=== PATIENT | male | born 1935 | race Caucasian/White ===

== ENCOUNTER 2023-06-12 08:00 | Day surgery (SDC) | payer OTHER ==
[2023-06-07 11:56] LABS: Absolute Lymphocytes (CBC) 1.3 K/uL (0.7-4.9); MCV 90.3 fL (80-100); Platelets 249 thou/uL (152-406); RBC Red Blood Cell Count 4.21 M/uL (4.33-5.43)
[2023-06-07 12:03] LABS: Protime INR 1.57
[2023-06-07 12:14] LABS: Potassium 4.7 mEq/L (3.5-5.1)
--- NOTE | 2023-06-07 12:39 | RAD REPORT ---
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 Lungs: No evidence of edema or pneumonia. Pleural: No significant pleural effusions or pneumothorax. Cardiac: Cardiomegaly Mediastinum: Within normal limits. Bones: No acute fractures. Sternotomy. Other: None IMPRESSION: No acute cardiopulmonary disease.
--- NOTE | 2023-06-07 13:32 | EKG ---
Test Date: 2023-06-07 Test Time: 12:42:41 Electrician Master: JIMMIE MEASUREMENT RESULTS: Intervals: Rate: 66 NE: QRSD: 94 QT: 392 QTc: 410 [place]: P: NE: QRS: 57 T: 217 INTERPRETIVE STATEMENTS: Atrial fibrillation Nonspecific T wave abnormality, probably digitalis effect Abnormal ECG Compared to ECG 07/28/2015 11:17:02 Sinus rhythm no longer present Atrial premature complex(es) no longer present T-wave abnormality still present Electronically Signed On 06-07-23 13:24:13 HOST/HOSTESS RESTAURANT by Grayson Ortiz
[2023-06-12] MEDS ORDERED: HEPA 1000U/500MLS 2,000 UNIT/1,000 ML BAG IV ONE (08:44)
[2023-06-12] MEDS ORDERED: LIDOCAINE 1% 20 ML MDV ONE (08:45)
[2023-06-12] MEDS ORDERED: MIDAZOLAM HCL 2 MG/2 ML INJ ONE (08:45)
[2023-06-12] MEDS ORDERED: FENTANYL CITR 100 MCG/2 ML ONE (08:45)
[2023-06-12] MEDS ORDERED: VERAPAMIL HCL 10 MG/4 ML VIAL IV ONE (08:45)
[2023-06-12] MEDS ORDERED: ATROPINE SULF 1 MG/10 ML SYR IV ONE (08:45)
[2023-06-12] MEDS ORDERED: ASPIRIN 325 MG TAB ONE (08:46)
[2023-06-12] MEDS ORDERED: TICAGRELOR 90 MG TABLET PO ONE (08:46)
[2023-06-12] MEDS ORDERED: HEPARIN 5000 UNIT/ML 1 ML VIAL ONE (08:46)
[2023-06-12] MEDS ORDERED: HEPARIN 10,000 UNIT/10 ML VIAL IV ONE (08:46)
[2023-06-12] MEDS ORDERED: CLOPIDOGREL 75 MG TABLET ONE (08:46)
[2023-06-12 08:56] VITALS: TEMP 97.6
[2023-06-12] MEDS ORDERED: NA CHLORIDE 0.9% 500 ML ONE (09:49)
[2023-06-12] MEDS ORDERED: NITROGLYCERIN/D5W 25 MG/250 ML BTL IV ONE (10:28)
[2023-06-12 13:27] VITALS: O2SAT 98
[2023-06-12 14:08] VITALS: BP 149/49
--- NOTE | 2023-06-12 21:15 | OP ---
Date of Procedure: 06/12/2023 Surgeon: KEDAR IGLESIAS Procedures Performed: 1.Coronary angiogram with bypass graft study. 2.Left heart catheterization. 3.Right heart catheterization. Indication: Aortic valve stenosis evaluation. Access: 1.Right femoral artery 6-Czech, closed with 6-Czech Angio-Seal. 2.Right IJ 7-Czech, closed with manual pressure. Complications: None. Bleeding: Less than 20 mL. Anesthesia: Total sedation time was 50 minutes. Description Of Procedure: After risks, benefits, and alternatives were explained, the patient agreed to procedure and signed informed consent. The patient was brought into cardiac catheterization [facility], prepped and draped in usual sterile fashion. Then, I accessed right femoral artery using asad ropuncture kit, ultrasound guidance, fluoroscopy, placed a 6-Czech [place] sheath and accessed righ t IJ using micropuncture kit under ultrasound guidance, and placed of 7-Czech pinnacle sheath and to ok a balloon-tipped 7-Czech Holland-Dinesh catheter through the IJ access into the right atrium and right ventricle, pulmonary artery and wedge, obtained waveform on pressure and then performed and obtained thermodilution and cardiac output and then removed the Holland catheter, then took a 6-Czech JL3.5 cat heter from the aortic root, engaged left main, took standard views, and then exchanged for a 6-Czech JR4 catheter, engaged the RCA, SVG to RCA, SVG to OM, and ROTH to LAD, took standard views and then using the J-wire and a JR4 catheter across the aortic valve and exchanged for [place] catheter, did simultaneous measurements between the LV and the aorta and obtained and then pullback did not record any gradient and then removed the catheter and the sheath and 6-Czech Angio-Seal was used for closure with good hemostasis. The IJ sheath was removed. Manual pressure was used for closure with good hemostasis. Findings: Coronary angiogram: 1.Left main is patent. 2.LAD; ANIMAL RIDES MANAGER ostially. 3.Left circumflex, large with proximal 30% stenosis, gives collaterals to the RCA. 4.RCA is totally occluded proximally. Graft study: 1.Patent SVG to RCA with proximal 30% to 40% stenosis. 2.Patent SVG to OM. 3.Patent ROTH to LAD. Right heart catheterization numbers: RA pressure is 10, RV pressure is 40/1, mean of 10, PA pressure 44/17, mean 26, pulmonary wedge pressure was 16, LVEDP was 13 mmHg, and the mean gradient across aor tic valve was 19 mmHg with a valve area of 1.1 cm2. Conclusion: 1.Severe [place] coronary artery disease with patent SV graft, SVG to OM, SVG to RCA, and ROTH to LAD . 2.Daiixghj-wy-xztiqp aortic valve stenosis with a valve area of 1.1 cm2. Plan: Medical management. Re-evaluate with echo in 6 months to a year. SR/MODL Voice ID: [id number] Report ID: [id number]
== END 2023-06-12 14:04 | disposition home or self-care (01) ==
LOC: CCL 08:00
PROVIDERS: ATTEND Internal Medicine
DX: I35.0 Nonrheumatic aortic (valve) stenosis (principal); I25.10 Atherosclerotic heart disease of native coronary artery without angina pectoris; I25.810 Atherosclerosis of coronary artery bypass graft(s) without angina pectoris; I25.82 Chronic total occlusion of coronary artery; I48.0 Paroxysmal atrial fibrillation; I73.9 Peripheral vascular disease, unspecified; I10 Essential (primary) hypertension; E78.2 Mixed hyperlipidemia; Z87.891 Personal history of nicotine dependence; Z79.01 Long term (current) use of anticoagulants; Z79.899 Other long term (current) drug therapy
CPT/HCPCS: 93005; 85025; 80048; 36415; 83721; 85610; 85730; 71046; 93461; 76937; C1893; C1760; Q9967; J2001; J2250; J3010; J7040; 99152; 99153; J0461; J1644

== ENCOUNTER 2023-07-19 07:00 | Day surgery (SDC) | payer OTHER ==
[2023-07-16 14:45] LABS: Absolute Lymphocytes (CBC) 1.1 K/uL (0.7-4.9); Absolute Monocytes 0.6 K/uL (0.1-1.3); Absolute Neutrophil 8.5 K/uL (1.8-8.0); Basophils % 0.3 % (0-1.3); Eosinophils % 0.4 % (0-4.4); Hematocrit 40.7 % (39.6-49.0); MCH 31.8 pg (27.0-35.0); MCHC 34.3 g/dL (32.0-36.0); MCV 92.6 fL (80-100); MPV 7.4 fL (7.6-11.3); Monocytes % 6.2 % (3.3-12.3); Neutrophils % 82.1 % (41.7-73.7); Platelets 265 thou/uL (152-406); RBC Red Blood Cell Count 4.39 M/uL (4.33-5.43); Red Cell Distribution Width 15.6 % (12.1-15.2)
[2023-07-16 14:54] LABS: PT Prothrombin Time 13.5 SECONDS (9.5-12.5); PTT, Activated Partial Thromb 37.9 SECONDS (24.3-36.9); Protime INR 1.23
[2023-07-16 14:57] LABS: Anion Gap 10.1 mEq/L (5.0-15.0); Potassium 5.1 mEq/L (3.5-5.1)
[2023-07-19] MEDS ORDERED: LIDOCAINE 1% 20 ML MDV ONE (07:05)
[2023-07-19] MEDS ORDERED: ATROPINE SULF 1 MG/10 ML SYR IV ONE (07:05)
[2023-07-19] MEDS ORDERED: HEPA 1000U/500MLS 2,000 UNIT/1,000 ML BAG IV ONE (07:05)
[2023-07-19] MEDS ORDERED: HEPARIN 10,000 UNIT/10 ML VIAL IV ONE (07:06)
[2023-07-19] MEDS ORDERED: FENTANYL CITR 100 MCG/2 ML ONE (07:06)
[2023-07-19] MEDS ORDERED: MIDAZOLAM HCL 2 MG/2 ML INJ ONE (07:07)
[2023-07-19] MEDS: NA CHLORIDE 0.9% 500 ML ONE (09:00)
[2023-07-19 10:32] VITALS: O2SAT 96
[2023-07-19 10:56] VITALS: BP 138/49
--- NOTE | 2023-07-20 17:40 | EKG ---
Test Date: 2023-07-16 Test Time: 14:20:30 Property Economist: TOO MEASUREMENT RESULTS: Intervals: Rate: 59 MA: QRSD: 90 QT: 420 QTc: 415 [place]: P: MA: QRS: 56 T: 144 INTERPRETIVE STATEMENTS: Atrial fibrillation with slow ventricular response T wave abnormality, consider inferolateral ischemia or digitalis effect Abnormal ECG Compared to ECG 06/07/2023 12:42:41 Possible ischemia now present T-wave abnormality still present Electronically Signed On 07-20-23 17:27:39 CDT by Grayson Ortiz
== END 2023-07-19 11:10 | disposition home or self-care (01) ==
LOC: CCL 07:00
PROVIDERS: ATTEND Internal Medicine Interventional Cardiology
DX: I70.223 Atherosclerosis of native arteries of extremities with rest pain, bilateral legs (principal); I25.10 Atherosclerotic heart disease of native coronary artery without angina pectoris; I35.0 Nonrheumatic aortic (valve) stenosis; I12.9 Hypertensive chronic kidney disease with stage 1 through stage 4 chronic kidney disease, or unspecified chronic kidney disease; N18.30 Chronic kidney disease, stage 3 unspecified; I48.0 Paroxysmal atrial fibrillation; E78.5 Hyperlipidemia, unspecified; Z87.891 Personal history of nicotine dependence; Z79.01 Long term (current) use of anticoagulants; Z79.899 Other long term (current) drug therapy
CPT/HCPCS: 93005; 85025; 80048; 36415; 85610; 85730; 36200; 36245; 36246; 76937; C1893; C1760; C1887; J2001; J2250; J3010; J7040; 75625; 75716; 99152; 99153; J0461

== ENCOUNTER 2024-01-11 15:57 | Emergency (ER) | payer OTHER ==
--- NOTE | 2024-01-11 17:22 | RAD REPORT ---
EXAM DESCRIPTION: RAD - Chest Pa And Lat (2 Views) - 01/11/2024 4:42 pm CLINICAL HISTORY: COUGH COMPARISON: Chest Pa And Lat (2 Views) dated 06/07/2023; Chest Pa And Lat (2 Views) dated 03/23/2022; CHEST SINGLE VIEW dated 07/26/2015; CHEST SINGLE VIEW dated 06/04/2011; Head Brain Wo Cont dated 01/11/20 24 TECHNIQUE: PA and lateral views of the chest were obtained. FINDINGS: The lungs are clear. Stable left pleural thickening versus trace effusion. Heart size is n ormal and central vasculature is within normal limits. No sizable pleural effusion or pneumothorax se en. No acute bony finding noted. Sequelae of median sternotomy again seen. IMPRESSION: No acute cardiopulmonary process.
--- NOTE | 2024-01-11 17:27 | RAD REPORT ---
EXAM DESCRIPTION: CT - Head Brain Wo Cont - 01/11/2024 4:48 pm CLINICAL HISTORY: headache;Headache COMPARISON: Head Brain Wo Cont dated 08/02/2021; HEAD BRAIN W O CONTRAST dated 07/26/2015 TECHNIQUE: Noncontrast head CT images were obtained without IV contrast. Multiplanar reformats were generated and reviewed. All CT scans are performed using dose optimization technique as appropriate and may include automated exposure control or mA/KV adjustment according to patient size. FINDINGS: No intracranial hemorrhage, mass, or edema. Midline structures are unremarkable. Normal ventricular caliber for age. Patrick-white matter differentiation is preserved, without evidence of acute infarct. Prominence of the extra-axial spaces along the right more than left frontoparietal convexities, stable. No other abnorm al extra-axial fluid collections. Stable pattern of periventricular and deep white matter hypodensities, nonspecific but suggestive of chronic small vessel ischemic changes. Mastoid air cells and visualized portions of the paranasal sinuses are clear. No acute bony findings. IMPRESSION: No evidence of an acute intracranial process.
[2024-01-11 17:41] LABS: Specific Gravity 1.007 (1.005-1.030); Sqamous Epithelial <5 /HPF (None Seen); Urine Bacteria None Seen /HPF (<20); Urine Bilirubin NEGATIVE (Negative); Urine Blood Trace (Negative); Urine Clarity Extremely Turbid (Clear); Urine Color Light-Yellow (Yellow); Urine Culture Reflex Order REFLEXED; Urine Glucose 3+ (Negative); Urine Ketones NEGATIVE (Negative); Urine Microscopic Reflex YN ORDER UMIC; Urine Nitrite NEGATIVE (Negative); Urine Protein TRACE (Negative); Urine RBC <5 /HPF (None Seen); Urine Urobilinogen Normal (Normal); Urine WBC >50 /HPF (<5)
[2024-01-11 17:53] LABS: Absolute Basophils 0.1 K/uL (0-0.5); Absolute Lymphocytes (CBC) 1.1 K/uL (0.7-4.9); Absolute Monocytes 1.3 K/uL (0.1-1.3); Absolute Neutrophil 7.8 K/uL (1.8-8.0); Basophils % 0.8 % (0-1.3); Eosinophils % 0.1 % (0-4.4); Hematocrit 44.6 % (39.6-49.0); Hemoglobin 15.1 g/dL (13.6-17.9); Lymphocytes % 10.6 % (15.3-44.8); MCH 31.5 pg (27.0-35.0); MCHC 33.9 g/dL (32.0-36.0); MCV 93.1 fL (80-100); MPV 7.5 fL (7.6-11.3); Monocytes % 12.8 % (3.3-12.3); Neutrophils % 75.7 % (41.7-73.7); Nucleated Red Blood Cells % 0.1 % (0-0); Platelets 213 thou/uL (152-406); RBC Red Blood Cell Count 4.79 M/uL (4.33-5.43); Red Cell Distribution Width 14.4 % (12.1-15.2)
[2024-01-11 17:56] LABS: Anion Gap 11.4 mEq/L (5.0-15.0)
[2024-01-11 17:57] LABS: Potassium 4.4 mEq/L (3.5-5.1)
[2024-01-11] MEDS ORDERED: ACETAMINOPHEN 500 MG TAB ONE (18:06)
[2024-01-11] MEDS ORDERED: CEFTRIAXONE 1000 MG/VIAL ONE (18:06)
[2024-01-11] MEDS ORDERED: NA CHLORIDE 0.9% 500 ML ONE (18:07)
--- NOTE | 2024-01-11 18:13 | ER ---
Nurse's Notes [facility] Name: Al Gaspar Age: 88 yrs Sex: Male : 1935 Arrival Date: 01/11/2024 Time: 15:57 Bed 12 Private MD: Diagnosis: UTI/ Urinary tract infection, site not specified;Myalgia Presentation: 01/10 16:13 Chief complaint: Patient states: Pt report headache \T\ blurred vision X 3 days. COVID + ld1 2 weeks ago, weakness. Pt reports burning while urinating, AIDEN flank pain X 3 days. Coronavirus screen: At this time, the client does not indicate any symptoms associated with coronavirus-19. Ebola Screen: No symptoms or risks identified at this time. Initial Sepsis Screen: Does the patient meet any 2 criteria? No. Patient's initial sepsis screen is negative. Does the patient have a suspected source of infection? No. Patient's initial sepsis screen is negative. Risk Assessment: Do you want to hurt yourself or someone else? Patient reports no desire to harm self or others. Onset of symptoms was January 11, 2024. 16:13 Method Of Arrival: Ambulatory ld1 16:13 Acuity: CRISTINE 3 ld1 Triage Assessment: 16:14 Headache History: Denies prior headaches. General: Appears in no apparent distress. ld1 comfortable, Behavior is calm, cooperative, appropriate for age. Pain: Complains of pain in low back area and pelvis Pain does not radiate. Pain currently is 7 out of 10 on a pain scale. Quality of pain is described as throbbing, Pain began suddenly, Is continuous, Also complains of no other associated symptoms. EENT: No signs and/or symptoms were reported regarding the EENT system. Neuro: Level of Consciousness is awake, alert, obeys commands, Oriented to person, place, time, situation, Appropriate for age. Cardiovascular: Capillary refill < 3 seconds Patient's skin is warm and dry. Respiratory: Airway is patent Respiratory effort is even, unlabored. GI: Abdomen is round non-distended. : No signs and/or symptoms were reported regarding the genitourinary system. Derm: No signs and/or symptoms reported regarding the dermatologic system. Musculoskeletal: No signs and/or symptoms reported regarding the musculoskeletal system. Historical: - Allergies: 16:14 No Known Allergies; ld1 - Home Meds: 16:16 Eliquis 5 mg oral tablet 1 tab once [Active]; furosemide 40 mg Oral tablet 1 tab once ld1 [Active]; - PMHx: 16:14 Atrial Fib; Bladder cancer; GERD; Hypertension; ld1 - Immunization history:: Adult Immunizations up to date. - Infectious Disease History:: Denies. - Social history:: Smoking status: Patient denies any tobacco usage or history of. Screenin:16 [facility] ED Fall Risk Assessment (Adult) History of falling in the last 3 months, ld1 including since admission No falls in past 3 months (0 pts) Confusion or Disorientation No (0 pts) Intoxicated or Sedated No (0 pts) Impaired Gait No (0 pts) Mobility Assist Device Used No (0 pt) Altered Elimination No (0 pt) Score/Fall Risk Level 0 - 2 = Low Risk Oriented to surroundings, Maintained a safe environment, Educated pt \T\ family on fall prevention, incl call for assistance when getting out of bed, Assessed \T\ reinforced patient's understanding of fall precautions, Provided non-skid footwear, Hourly rounding (assess needs \T\ fall precautionary measures) done, Used ambulatory aids as needed (educated on \T\ assisted with), Used gait belt as appropriate. Abuse screen: Denies threats or abuse. Denies injuries from another. Nutritional screening: No deficits noted. Tuberculosis screening: No symptoms or risk factors identified. Assessment: 16:16 Reassessment: See triage assessment. Pain: Denies pain. ld1 Vital Signs: 16:13 BP 138 / 70; Pulse 89; Resp 18; Temp 98.1(TE); Pulse Ox 97% on R/A; Weight 92.53 kg; ld1 Height 5 ft. 6 in. ; Pain 8/10; 18:52 BP 138 / 67; Pulse 64; Resp 18; Pulse Ox 100% on R/A; ar6 19:05 BP 126 / 64; Pulse 67; Resp 18; Pulse Ox 100% on R/A; ar6 16:13 Body Mass Index 32.93 (92.53 kg, 167.64 cm) ld1 16:13 Pain Scale: Adult ld1 ED Course: 16:00 Patient arrived in ED. mr 16:14 Triage completed. ld1 16:14 Arm band placed on right wrist. ld1 16:15 Александр Reyes DO is Attending Physician. ms3 16:16 Patient has correct armband on for positive identification. Placed in gown. Bed in low ld1 position. Call light in reach. Side rails up X2. pin drafter operator on. Pulse ox on. NIBP on. Door closed. Noise minimized. Warm blanket given. 16:44 Chest Pa And Lat (2 Views) XRAY In Process Unspecified. EDMS 16:50 CT Head Brain wo Cont In Process Unspecified. EDMS 17:26 Urinalysis w/ reflexes Sent. em1 17:27 BMP Sent. em1 17:27 CBC with Diff Sent. em1 17:27 Initial lab(s) drawn, by la, sent to lab. Inserted saline lock: 22 gauge in left em1 forearm, using aseptic technique. Blood collected. Flushed with 10 mL NS. 17:50 Attending Physician role handed off by Александр Reyes DO ms3 17:50 Geoffrey Glover MD is Attending Physician. ms3 18:04 Delmy Dinero, [facility] is Primary Nurse. ar6 18:12 Papo Thorne DO is Referral Physician. elmira 18:52 No apparent distress. Awaiting disposition. ar6 18:52 Provided Education on: medications. ar6 18:52 No provider procedures requiring assistance completed. IV discontinued, intact, ar6 bleeding controlled, No redness/swelling at site. Pressure dressing applied. Administered Medications: 18:15 Drug: Trimethoprim-Sulfamethoxazole PO (160 mg-800 mg (DS) 1 tablet PO once Route: PO; ar6 19:05 Follow up: Response: No adverse reaction ar6 18:20 Drug: Acetaminophen PO 1000 mg PO once Route: PO; ar6 18:53 Follow up: Response: No adverse reaction ar6 18:20 Drug: NS 0.9% IV 500 ml IV at bolus once Route: IV; Rate: bolus; Site: right forearm; ar6 18:20 Follow up: Response: No adverse reaction; IV Status: Completed infusion; IV Intake: ar6 500ml 18:30 Follow up: Response: No adverse reaction; IV Status: Completed infusion; IV Intake: ar6 500ml 18:20 Drug: Rocephin IV 1 grams IV at per protocol once; Given slow IV push per pharmacy ar6 instructions Route: IV; Rate: per protocol; Site: right forearm; 18:53 Follow up: Response: No adverse reaction; IV Status: Completed infusion ar6 Medication: 16:16 VIS not applicable for this client. ld1 Intake: 18:20 IV: 500ml; Total: 500ml. ar6 18:30 IV: 500ml; Total: 1000ml. ar6 Outcome: 18:13 Discharge ordered by . elmira 19:05 Discharged to home ambulatory, ar6 19:05 Condition: good 19:05 Discharge instructions given to patient, family, Instructed on discharge instructions, follow up and referral plans. medication usage, Demonstrated understanding of instructions, follow-up care, medications, Prescriptions given X 3, 19:06 Patient left the ED. ar6 Addendum: 01/15/2024 07:49 Addendum: Culture Results: Positive urine culture. No further action required. Bacteria i w sensitive to prescribed antibiotic. Signatures: Dispatcher [employer] EDMS Geoffrey Glover MD MD cha Rivera, Beverley, Reg Reg mr Aleida Zamora, RN Rodrigo Cyr em1 Александр Reyes DO DO ms3 Juana Reyes, [facility] RN ld1 Delmy Dinero RN RN ar6
--- NOTE | 2024-01-11 18:13 | EDPHYS ---
Physician Documentation [facility] Name: Al Gaspar Age: 88 yrs Sex: Male : 1935 Arrival Date: 01/11/2024 Time: 15:57 Bed 12 Private MD: ED Physician Geoffrey Glover HPI: 01/10 16:22 This 88 yrs old Male presents to ER via Ambulatory with complaints of Headache, Blurred ms3 Vision, Weakness, Urinary Problem. 16:22 88-year-old male with past medical history of atrial fibrillation, bladder cancer, ms3 GERD, hypertension presents to the emergency department for headache, backache, fatigue, dysuria. Of note patient did have COVID 2 weeks ago. Patient states his discomfort is currently 5/10 and improving. Patient states he has had symptoms for 3 weeks. Historical: - Allergies: 16:14 No Known Allergies; ld1 - Home Meds: 16:16 Eliquis 5 mg oral tablet 1 tab once [Active]; furosemide 40 mg Oral tablet 1 tab once ld1 [Active]; - PMHx: 16:14 Atrial Fib; Bladder cancer; GERD; Hypertension; ld1 - Immunization history:: Adult Immunizations up to date. - Infectious Disease History:: Denies. - Social history:: Smoking status: Patient denies any tobacco usage or history of. ROS: 16:22 Neck: Negative for injury, pain, and swelling, Cardiovascular: Negative for chest pain, ms3 and palpitations. 16:22 Abdomen/GI: Negative for abdominal pain, nausea, vomiting, diarrhea, and constipation, MS/Extremity: Negative for injury and deformity, Skin: Negative for injury, rash, and discoloration, 16:22 Constitutional: Positive for body aches, 16:22 Respiratory: Positive for cough, Exam: 16:22 Constitutional: This is a well developed, well nourished patient who is awake, alert, ms3 and in no acute distress. Head/Face: Normocephalic, atraumatic. Chest/axilla: Normal chest wall appearance and motion. Nontender with no deformity. Cardiovascular: Regular rate and rhythm with a normal S1 and S2. No gallops, murmurs, or rubs. Normal PMI, no JVD. No pulse deficits. Respiratory: Lungs have equal breath sounds bilaterally, clear to auscultation and percussion. No rales, rhonchi or wheezes noted. No increased work of breathing, no retractions or nasal flaring. Abdomen/GI: Soft, non-tender, with normal bowel sounds. No distension or tympany. No guarding or rebound. No evidence of tenderness throughout. Skin: Warm, dry with normal turgor. Normal color with no rashes, no lesions, and no evidence of cellulitis. MS/ Extremity: Pulses equal, no cyanosis. Neurovascular intact. Full, normal range of motion. Vital Signs: 16:13 BP 138 / 70; Pulse 89; Resp 18; Temp 98.1(TE); Pulse Ox 97% on R/A; Weight 92.53 kg; ld1 Height 5 ft. 6 in. ; Pain 8/10; 18:52 BP 138 / 67; Pulse 64; Resp 18; Pulse Ox 100% on R/A; ar6 19:05 BP 126 / 64; Pulse 67; Resp 18; Pulse Ox 100% on R/A; ar6 16:13 Body Mass Index 32.93 (92.53 kg, 167.64 cm) ld1 16:13 Pain Scale: Adult ld1 MDM: 16:20 Patient medically screened. ms3 16:22 Differential diagnosis: hyponatremia, intracerebral hemorrhage, migraine, Urinary tract ms3 infection versus pyelonephritis. 17:50 Transition of care: After a detail discussion of the patient's case, care is ms3 transferred to Geoffrey Glover MD. 01/10 16:21 Order name: CBC with Diff; Complete Time: 18:12 ms3 01/10 16:21 Order name: BMP; Complete Time: 18:12 ms3 01/10 16:21 Order name: Urinalysis w/ reflexes; Complete Time: 17:46 ms3 01/10 17:48 Order name: Urine Culture EDMS 01/10 16:21 Order name: CT Head Brain wo Cont; Complete Time: 17:35 ms3 01/10 16:21 Order name: Chest Pa And Lat (2 Views) XRAY; Complete Time: 17:35 ms3 01/10 16:21 Order name: IV Start; Complete Time: 17:26 ms3 Administered Medications: 18:15 Drug: Trimethoprim-Sulfamethoxazole PO (160 mg-800 mg (DS) 1 tablet PO once Route: PO; ar6 19:05 Follow up: Response: No adverse reaction ar6 18:20 Drug: Acetaminophen PO 1000 mg PO once Route: PO; ar6 18:53 Follow up: Response: No adverse reaction ar6 18:20 Drug: NS 0.9% IV 500 ml IV at bolus once Route: IV; Rate: bolus; Site: right forearm; ar6 18:20 Follow up: Response: No adverse reaction; IV Status: Completed infusion; IV Intake: ar6 500ml 18:30 Follow up: Response: No adverse reaction; IV Status: Completed infusion; IV Intake: ar6 500ml 18:20 Drug: Rocephin IV 1 grams IV at per protocol once; Given slow IV push per pharmacy ar6 instructions Route: IV; Rate: per protocol; Site: right forearm; 18:53 Follow up: Response: No adverse reaction; IV Status: Completed infusion ar6 Disposition Summary: 01/11/24 18:13 Discharge Ordered Notes: Location: Home [facility] Condition: Stable [facility] Diagnosis - UTI/ Urinary tract infection, site not specified [facility] - Myalgia [facility] Followup: ms3 - With: Papo Thorne DO - When: 2 - 3 days - Reason: Recheck today's complaints Discharge Instructions: - Discharge Summary Sheet ms3 - Dysuria ms3 - Urinary Tract Infection, Adult ms3 - Urinary Tract Infection, Adult, [id number] ms3 Forms: - Medication Reconciliation Form [facility] - Antibiotic Education [facility] - Prescription Opioid Use [facility] - Patient Portal Instructions [facility] - Leadership Thank You Letter [facility] Prescriptions: - Flomax 0.4 mg Oral capsule - take 1 capsule ORAL route once; 2 capsule; Refills: 0, Product Selection [facility] Permitted - Bactrim DS 800-160 mg Oral tablet - take 1 tablet ORAL route every 12 hours for 5 days; 6 tablet; Refills: 0, [facility] Product Selection Permitted - cefpodoxime 200 mg Oral tablet - take 1 tablet ORAL route every 12 hours with food; 20 tablet; Refills: 0, ms3 Product Selection Permitted Signatures: Dispatcher [employer] EDGeoffrey Valencia MD MD cha Sims, Marcus, DO DO ms3 Juana Reyes RN RN ld1 Delmy Dinero RN RN ar6 Corrections: (The following items were deleted from the chart) 16:22 16:22 Chest Pa And Lat (2 Views)+[email or web address] ordered. EDMS EDMS
[2024-01-11] MEDS ORDERED: SMZ./TMP. 800/160 MG TABLET ONE (18:49)
[2024-01-11 20:01] VITALS: TEMP 98.1
[2024-01-11 20:02] VITALS: O2SAT 100
[2024-01-11 20:04] VITALS: BP 126/64
== END 2024-01-11 19:06 | disposition home or self-care (01) ==
LOC: ER 15:57
DX: N39.0 Urinary tract infection, site not specified (principal); M79.10 Myalgia, unspecified site; I10 Essential (primary) hypertension; I48.91 Unspecified atrial fibrillation; Z79.01 Long term (current) use of anticoagulants; Z85.51 Personal history of malignant neoplasm of bladder
CPT/HCPCS: 96365; 87088; 85025; 81001; 87086; 80048; 36415; 87077; 87186; 70450; 71046; 99285; J7040; J0696

== ENCOUNTER 2024-06-29 20:59 | Emergency (ER) | payer OTHER ==
[2024-06-29 21:55] LABS: Absolute Eosinophils 0.3 K/uL (0-0.5); Absolute Monocytes 1.2 K/uL (0.1-1.3); Absolute Neutrophil 5.4 K/uL (1.8-8.0); Basophils % 0.5 % (0-1.3); Eosinophils % 2.8 % (0-4.4); Hematocrit 41.6 % (39.6-49.0); Hemoglobin 14.1 g/dL (13.6-17.9); Lymphocytes % 22.4 % (15.3-44.8); MCH 31.4 pg (27.0-35.0); MCHC 33.8 g/dL (32.0-36.0); MPV 7.1 fL (7.6-11.3); Monocytes % 13.3 % (3.3-12.3); Nucleated RBC Absolute Count 0.1 (0-0); Nucleated Red Blood Cells % 0.7 % (0-0); Platelets 218 thou/uL (152-406); RBC Red Blood Cell Count 4.48 M/uL (4.33-5.43); Red Cell Distribution Width 14.3 % (12.1-15.2)
[2024-06-29 22:01] LABS: PT Prothrombin Time 17.8 SECONDS (10.0-13.0); Protime INR 1.6
[2024-06-29 22:15] LABS: ALT/SGPT 28 U/L (16-61); AST/SGOT 15 U/L (15-37); Albumin 3.7 g/dL (3.4-5.0); Albumin/Globulin Ratio 1.2 (1.1-1.8); Alkaline Phosphatase 54 U/L (45-117); Anion Gap 7.9 mEq/L (5.0-15.0); BUN Blood Urea Nitrogen 34 mg/dL (7-18); Bicarbonate 29 mEq/L (21-32); Bilirubin Total 0.4 mg/dL (0.2-1.0); Globulin 3.2 g/dL (2.3-3.5); Glomerular Filtration Rate 48 ml/min (=/>90); Glucose Level 135 mg/dL (74-106); Magnesium 2.5 mg/dL (1.6-2.4); NT PRO-BNP 261 pg/mL (<450); Potassium 3.9 mEq/L (3.5-5.1); Protein, Total 6.9 g/dL (6.4-8.2); Sodium Level 143 mEq/L (136-145); Troponin High Sensitivity 20.4 pg/mL (<58.9)
[2024-06-29 22:17] LABS: Bilirubin Direct < 0.2 mg/dL (0-0.2); Bilirubin Indirect, Calculated 0.2 mg/dL (0.2-0.8)
--- NOTE | 2024-06-30 00:16 | ER ---
Nurse's Notes [facility] Name: Al Gaspar Age: 89 yrs Sex: Male : 1935 Arrival Date: 06/29/2024 Time: 20:59 Bed 19 Private MD: Lupillo Leon Diagnosis: Rectal bleeding, resolved Presentation: 06/29 21:07 Chief complaint: Patient states: passing blood through his rectum X 2 days , has been iw constipated , today there was more blood than before. Coronavirus screen: At this time, the client does not indicate any symptoms associated with coronavirus-19. Ebola Screen: No symptoms or risks identified at this time. Initial Sepsis Screen: Does the patient meet any 2 criteria? No. Patient's initial sepsis screen is negative. Does the patient have a suspected source of infection? No. Patient's initial sepsis screen is negative. Risk Assessment: Do you want to hurt yourself or someone else? Patient reports no desire to harm self or others. Onset of symptoms was June 27, 2024. 21:07 Method Of Arrival: Ambulatory iw 21:07 Acuity: CRISTINE 3 iw Historical: - Allergies: 21:08 No Known Allergies; iw - Home Meds: 21:09 Eliquis 5 mg Oral tablet 1 tab once [Active]; furosemide 40 mg Oral tablet 1 tab once iw [Active]; - PMHx: 21:08 Bladder cancer; Atrial Fib; GERD; Hypertension; iw - PSHx: 21:08 cardiac ablation; triple bypass; iw - Immunization history:: Adult Immunizations not up to date. - Infectious Disease History:: Denies. - Social history:: Smoking status: Patient/guardian denies using tobacco, the patient reports quitting approximately 15 years ago. Screenin:15 [facility] ED Fall Risk Assessment (Adult) History of falling in the last 3 months, rg5 including since admission No falls in past 3 months (0 pts) Confusion or Disorientation No (0 pts) Intoxicated or Sedated No (0 pts) Impaired Gait No (0 pts) Mobility Assist Device Used No (0 pt) Altered Elimination No (0 pt) Score/Fall Risk Level 0 - 2 = Low Risk Oriented to surroundings, Maintained a safe environment, Hourly rounding (assess needs \T\ fall precautionary measures) done. Abuse screen: Denies threats or abuse. Nutritional screening: No deficits noted. Tuberculosis screening: No symptoms or risk factors identified. Assessment: 21:15 General: Appears in no apparent distress. comfortable, Behavior is calm, cooperative, rg5 appropriate for age. 21:15 Pain: Complains of pain in abdomen Pain currently is 4 out of 10 on a pain scale. rg5 Quality of pain is described as aching. Neuro: Level of Consciousness is awake, alert, obeys commands, Oriented to person, place, time, situation. Cardiovascular: Denies chest pain, Patient's skin is warm and dry. Respiratory: Airway is patent Trachea midline Respiratory effort is even, unlabored, Respiratory pattern is regular, symmetrical. GI: Abdomen is round obese, Abd is soft and non tender Reports constipation, rectal bleeding. : No signs and/or symptoms were reported regarding the genitourinary system. EENT: No deficits noted. Derm: Skin is intact, Skin is dry, Skin is normal. Musculoskeletal: Circulation, motion, and sensation intact. Range of motion: intact in all extremities. 22:30 Reassessment: No changes from previously documented assessment. Patient and/or family rg5 updated on plan of care and expected duration. Pain level reassessed. Patient is alert, oriented x 3, equal unlabored respirations, skin warm/dry/pink. 23:32 Reassessment: No changes from previously documented assessment. Patient and/or family rg5 updated on plan of care and expected duration. Pain level reassessed. Patient is alert, oriented x 3, equal unlabored respirations, skin warm/dry/pink. 06/30 00:01 Reassessment: No changes from previously documented assessment. Patient and/or family rg5 updated on plan of care and expected duration. Pain level reassessed. Patient is alert, oriented x 3, equal unlabored respirations, skin warm/dry/pink. Vital Signs: 06/29 21:07 BP 170 / 75; Pulse 70; Resp 16; Temp 97.1; Pulse Ox 100% on R/A; Weight 89.36 kg; iw Height 5 ft. 6 in. ; Pain 5/10; 22:30 BP 153 / 60; Pulse 61; Resp 17; Pulse Ox 100% on R/A; Pain 0/10; rg5 23:31 BP 152 / 59; Pulse 60; Resp 17; Pulse Ox 99% on R/A; Pain 0/10; rg5 06/30 00:15 BP 142 / 55; Pulse 61; Resp 17; Pulse Ox 99% on R/A; Pain 0/10; rg5 06/29 21:07 Body Mass Index 31.80 (89.36 kg, 167.64 cm) iw 06/29 21:07 Pain Scale: Adult iw 22:30 Pain Scale: Adult rg5 23:31 Pain Scale: Adult rg5 06/30 00:15 Pain Scale: Adult rg5 ED Course: 06/29 21:04 Patient arrived in ED. gm2 21:04 Lupillo Leon MD is Private Physician. gm2 21:07 Zach Thorne MD is Attending Physician. sp3 21:08 Triage completed. iw 21:10 Justo Ayala, [facility] is Primary Nurse. rg5 21:10 Arm band placed on. iw 21:15 Patient has correct armband on for positive identification. Placed in gown. Bed in low rg5 position. Call light in reach. Side rails up X 1. Door closed. Noise minimized. Warm blanket given. 21:15 No provider procedures requiring assistance completed. Inserted saline lock: 20 gauge rg5 in right antecubital area, using aseptic technique. Blood collected. Flushed with 10 mL NS. Patient maintains SpO2 saturation greater than 95% on room air. 21:56 EKG done, by ED staff, reviewed by Zach Thorne MD. oe 22:40 CT Abd/Pelvis - IV Contrast Only In Process Unspecified. EDHI 06/30 00:15 Jorge Dickson MD is Referral Physician. sp3 00:16 Provided Education on: post er care. rg5 00:16 IV discontinued, bleeding controlled, No redness/swelling at site. Pressure dressing rg5 applied. Administered Medications: No medications were administered Medication: 06/29 21:15 VIS not applicable for this client. rg5 Outcome: 06/30 00:15 Discharge ordered by . sp3 00:25 Discharged to home ambulatory, rg5 00:25 Condition: stable 00:25 Condition: stable 00:25 Instructed on discharge instructions, follow up and referral plans. Demonstrated understanding of instructions, follow-up care, 00:25 Patient left the ED. rg5 Signatures: Dispatcher [employer] EDHI Aleida Zamora, [facility] RN iw Chou, Zach Barrera MD MD sp3 Rehana Aranda gm2 Justo Ayala, RN RN rg5
--- NOTE | 2024-06-30 00:16 | EDPHYS ---
Physician Documentation [facility] Name: Al Gaspar Age: 89 yrs Sex: Male : 1935 Arrival Date: 06/29/2024 Time: 20:59 Bed 19 Private MD: Lupillo Leon ED Physician Zach Thorne HPI: 06/29 21:47 This 89 yrs old Male presents to ER via Ambulatory with complaints of Rectal Bleeding. sp3 21:47 89-year-old male with a history of bladder cancer, atrial fibrillation currently on sp3 Eliquis, GERD, hypertension presents to the ED with chief complaint rectal bleeding with and without stool. No melena reported. No vomiting. Patient denies headache, neck pain, chest pain, shortness of breath, back pain, abdominal pain, bleeding anywhere else, syncope, near syncope, or any other signs or symptoms on ROS at this time. Patient has a total of 2 episodes.. Historical: - Allergies: 21:08 No Known Allergies; iw - Home Meds: 21:09 Eliquis 5 mg Oral tablet 1 tab once [Active]; furosemide 40 mg Oral tablet 1 tab once iw [Active]; - PMHx: 21:08 Bladder cancer; Atrial Fib; GERD; Hypertension; iw - PSHx: 21:08 cardiac ablation; triple bypass; iw - Immunization history:: Adult Immunizations not up to date. - Infectious Disease History:: Denies. - Social history:: Smoking status: Patient/guardian denies using tobacco, the patient reports quitting approximately 15 years ago. ROS: 21:48 Constitutional: Negative for fever, chills, and weight loss, Eyes: Negative for injury, sp3 pain, redness, and discharge, ENT: Negative for injury, pain, and discharge, Neck: Negative for injury, pain, and swelling, Cardiovascular: Negative for chest pain, palpitations, and edema, Respiratory: Negative for shortness of breath, cough, wheezing, and pleuritic chest pain, Back: Negative for injury and pain, MS/Extremity: Negative for injury and deformity, Skin: Negative for injury, rash, and discoloration, Neuro: Negative for headache, weakness, numbness, tingling, and seizure, Psych: Negative for depression, anxiety, suicide ideation, homicidal ideation, and hallucinations, Allergy/Immunology: Negative for hives, rash, and allergies, Endocrine: Negative for neck swelling, polydipsia, polyuria, polyphagia, and marked weight changes, 21:48 All other systems are negative, Exam: 21:49 Constitutional: This is a well developed, well nourished patient who is awake, alert, sp3 and in no acute distress. Head/Face: Normocephalic, atraumatic. Eyes: Pupils equal round and reactive to light, extra-ocular motions intact. Lids and lashes normal. Conjunctiva and sclera are non-icteric and not injected. Cornea within normal limits. Periorbital areas with no swelling, redness, or edema. ENT: Nares patent. No nasal discharge, no septal abnormalities noted. External auditory canals are clear. Oropharynx with no redness, swelling, or masses, exudates, or evidence of obstruction, uvula midline. Mucous membranes moist. Neck: Trachea midline, no thyromegaly or masses palpated, and no cervical lymphadenopathy. Supple, full range of motion without nuchal rigidity, or vertebral point tenderness. No Meningismus. Chest/axilla: Normal chest wall appearance and motion. Nontender with no deformity. No lesions are appreciated. Cardiovascular: Regular rate and rhythm with a normal S1 and S2. No gallops, murmurs, or rubs. Normal PMI, no JVD. No pulse deficits. Respiratory: Lungs have equal breath sounds bilaterally, clear to auscultation and percussion. No rales, rhonchi or wheezes noted. No increased work of breathing, no retractions or nasal flaring. Abdomen/GI: Soft, non-tender, with normal bowel sounds. No distension or tympany. No guarding or rebound. No evidence of tenderness throughout. Back: No spinal tenderness. No costovertebral tenderness. Full range of motion. Skin: Warm, dry with normal turgor. Normal color with no rashes, no lesions, and no evidence of cellulitis. MS/ Extremity: Pulses equal, no cyanosis. Neurovascular intact. Full, normal range of motion. Neuro: Awake and alert, GCS 15, oriented to person, place, time, and situation. Cranial nerves II-XII grossly intact. Motor strength 5/5 in all extremities. Sensory grossly intact. Cerebellar exam normal. Normal gait. Psych: Awake, alert, with orientation to person, place and time. Behavior, mood, and affect are within normal limits. 21:49 : No external or internal hemorrhoids appreciated. No active bleeding., 21:51 ECG was reviewed by the Attending Physician. EKG demonstrates normal sinus rhythm at 64 sp3 bpm with normal intervals, normal QRS, motion artifact, normal axis, nonspecific diffuse ST/T changes without evidence of acute ischemia. Vital Signs: 21:07 BP 170 / 75; Pulse 70; Resp 16; Temp 97.1; Pulse Ox 100% on R/A; Weight 89.36 kg; iw Height 5 ft. 6 in. ; Pain 5/10; 22:30 BP 153 / 60; Pulse 61; Resp 17; Pulse Ox 100% on R/A; Pain 0/10; rg5 23:31 BP 152 / 59; Pulse 60; Resp 17; Pulse Ox 99% on R/A; Pain 0/10; rg5 06/30 00:15 BP 142 / 55; Pulse 61; Resp 17; Pulse Ox 99% on R/A; Pain 0/10; rg5 06/29 21:07 Body Mass Index 31.80 (89.36 kg, 167.64 cm) iw 06/29 21:07 Pain Scale: Adult iw 22:30 Pain Scale: Adult rg5 23:31 Pain Scale: Adult rg5 06/30 00:15 Pain Scale: Adult rg5 MDM: 06/29 21:17 Medical Screening Exam initiated sp3 21:49 Data reviewed: vital signs, nurses notes, lab test result(s), EKG, radiologic studies. sp3 ED course: 89-year-old male with PMH above, on Eliquis now presents with rectal bleeding episodes x 2. No active bleeding noted. Vital signs are normal. Differential diagnosis includes Eliquis side effect, bleeding polyp, other GI bleed, hemorrhoidal bleed, among others. I am not highly suspicious of sepsis, shock, hypovolemia, critical anemia, or any other signs or symptoms on ROS at this time. Workup will include general labs, CT scan of the abdomen pelvis with IV contrast and general supportive care. Disposition pending workup and patient course. If workup negative, consider discharge with follow-up with Dr. Montez who is his GI doctor.. 06/30 00:15 ED course: Full workup negative. I will hold Eliquis for 2 days and follow-up with Dr. rajani Leon and Dr. Goodson. 06/29 21:17 Order name: Basic Metabolic Panel; Complete Time: 22:19 sp3 06/29 21:17 Order name: CBC with Diff; Complete Time: 22:19 sp3 06/29 21:17 Order name: LFT's; Complete Time: 22:19 sp3 06/29 21:17 Order name: Magnesium; Complete Time: 22:19 sp3 06/29 21:17 Order name: NT PRO-BNP; Complete Time: 22:19 sp3 06/29 21:17 Order name: PT-INR; Complete Time: 22:19 sp3 06/29 21:17 Order name: Troponin HS; Complete Time: 22:19 sp3 06/29 21:17 Order name: CT Abd/Pelvis - IV Contrast Only sp3 06/29 21:17 Order name: EKG; Complete Time: 21:18 sp3 06/29 21:17 Order name: Cardiac monitoring; Complete Time: 21:36 sp3 06/29 21:17 Order name: EKG - Nurse/Tech; Complete Time: 22:21 sp3 06/29 21:17 Order name: IV Saline Lock; Complete Time: 21:36 sp3 06/29 21:17 Order name: Labs collected and sent; Complete Time: 21:36 sp3 06/29 21:17 Order name: O2 Per Protocol; Complete Time: 21:36 sp3 06/29 21:17 Order name: O2 Sat Monitoring; Complete Time: 21:36 sp3 Administered Medications: No medications were administered Disposition Summary: 06/30/24 00:15 Discharge Ordered Notes: Location: Home sp3 Condition: Stable sp3 Diagnosis - Rectal bleeding, resolved sp3 Followup: sp3 - With: Jorge Dickson MD - When: Upon discharge from the Emergency Department - Reason: Continuance of care Discharge Instructions: - Discharge Summary Sheet sp3 - Rectal Bleeding sp3 Forms: - Medication Reconciliation Form sp3 - Antibiotic Education sp3 - Prescription Opioid Use sp3 - Patient Portal Instructions sp3 - Leadership Thank You Letter sp3 Signatures: Dispatcher [employer] Aleida Rodrigez RN RN iw Patel, Setul, MD MD sp3
[2024-06-30 00:30] VITALS: TEMP 97.1
[2024-06-30 00:34] VITALS: O2SAT 99
[2024-06-30 00:36] VITALS: BP 142/55
--- NOTE | 2024-06-30 02:21 | RAD REPORT ---
PROCEDURE: CT Abdomen and Pelvis With Intravenous Contrast CLINICAL INDICATION: The patient is 89 years old and is Male; Rectal bleeding. TECHNIQUE: Axial computed tomography images of the abdomen and pelvis with intravenous contrast. Sagittal and coronal reformatted images were created and reviewed. This CT exam was performed using one or more of the following dose reduction techniques: automated exposure control, adjustment of the mA a nd/or kV according to patient size, and/or use of iterative reconstruction technique. COMPARISON: CT Abdomen pelvis 08/15/2022. FINDINGS: LUNG BASES: Unremarkable No mass. No consolidation. MEDIASTINUM: Small hiatal hernia. ABDOMEN: LIVER: Unremarkable No mass. GALLBLADDER AND BILE DUCTS: Gallstone within a contracted bladder. No ductal dilation. PANCREAS: Unremarkable No mass. No ductal dilation. SPLEEN: Unremarkable No splenomegaly. ADRENALS: Unremarkable No mass. KIDNEYS AND URETERS: Simple renal cysts redemonstrated bilaterally with one demonstrating thin michael pheral calcifications, unchanged. No follow-up of these simple cysts is necessary. No hydronephrosis. STOMACH AND BOWEL: Right lower quadrant small bowel anastomosis redemonstrated immediately proximal to the ileocecal junction. No evidence of small or large bowel obstruction. PELVIS: APPENDIX: No findings to suggest acute appendicitis. BLADDER: Extensive intrapelvic surgical changes related to urinary bladder resection and neobladder reconstruction. REPRODUCTIVE: Radical prostatectomy. ABDOMEN and PELVIS: INTRAPERITONEAL SPACE: Unremarkable No free air. No significant fluid collection. BONES/JOINTS: Multilevel spondylosis. No acute fracture. No dislocation. SOFT TISSUES: Redemonstrated small superior midline ventral wall hernia containing omental fat and an adjacent mesenteric vessel, unchanged. Small fat-containing left inguinal hernia. Hepatic cysts too small small fat-containing umbilical hernia. Midline infraumbilical abdominal wall incision site redemonstrated. VASCULATURE: Severe calcified atherosclerosis of the abdominal aorta without aneurysmal dilatation. LYMPH NODES: Unremarkable No enlarged lymph nodes. IMPRESSION: 1. No acute abnormality of the abdomen or pelvis. 2. Cholelithiasis. 3. Extensive intrapelvic surgical changes related to radical prostatectomy, urinary bladder resecti on and neobladder reconstruction. 4. Additional nonacute findings as above. Of note, noncontrasted and single phase contrasted CT studies of the abdomen and pelvis are insensiti ve for the evaluation of active GI bleed. If there is clinical suspicion for GI bleed, a GI bleed scintigraphic study or multiphase CT of the abdomen and pelvis with noncontrasted, arterial-phase, an d delayed venous-phase contrast images is recommended to reliably evaluate for presence and source of active GI bleed. Electronically signed by: Devon Bolton MD 06/29/2024 11:49 PM [facility] Due to temporary technical issues with the PACS/[employer] reporting system, reports are being mary d by the in-house radiologist without review as a courtesy to ensure prompt reporting the interpreting radiologist is fully responsible for the content of the report. Transcribed Date/Time: 06/30/2024 6:51 AM
--- NOTE | 2024-06-30 11:56 | EKG ---
Test Date: 2024-06-29 Test Time: 21:44:30 Energy Control Officer: UBALDO MEASUREMENT RESULTS: Intervals: Rate: 64 CO: 184 QRSD: 96 QT: 436 QTc: 449 [place]: P: 16 CO: 184 QRS: 64 T: 144 INTERPRETIVE STATEMENTS: Undetermined rhythm Marked ST abnormality, possible lateral subendocardial injury Abnormal ECG Compared to ECG 07/16/2023 14:20:30 ST (T wave) deviation now present Atrial fibrillation no longer present T-wave abnormality no longer present Possible ischemia no longer present Electronically Signed On 06-30-24 11:56:18 OCCUPATIONAL HEALTH AND SAFETY OFFICER by Jose Enrique Hill
== END 2024-06-30 00:25 | disposition home or self-care (01) ==
LOC: ER 20:59
DX: K62.5 Hemorrhage of anus and rectum (principal); Z85.51 Personal history of malignant neoplasm of bladder; I48.91 Unspecified atrial fibrillation; Z79.01 Long term (current) use of anticoagulants; Z95.1 Presence of aortocoronary bypass graft
CPT/HCPCS: 93005; 85025; 80048; 36415; 83735; 85610; 80076; 84484; 83880; 74177; 99284; Q9967

== ENCOUNTER 2024-12-20 13:10 | Observation (INO) | payer OTHER ==
[2024-12-20 14:19] LABS: Absolute Lymphocytes (CBC) 1.2 K/uL (0.7-4.9); Hematocrit 38.3 % (39.6-49.0); Hemoglobin 13.1 g/dL (13.6-17.9); MCH 31.2 pg (27.0-35.0); MCHC 34.1 g/dL (32.0-36.0); MCV 91.3 fL (80-100); MPV 6.8 fL (7.6-11.3); Nucleated RBC Absolute Count 0.0 (0-0); Nucleated Red Blood Cells % 0.0 % (0-0); RBC Red Blood Cell Count 4.20 M/uL (4.33-5.43); White Blood Count 6.20 thou/uL (4.3-10.9)
[2024-12-20 14:29] LABS: PT Prothrombin Time 18.8 SECONDS (10-13.0); Protime INR 1.69
[2024-12-20 14:49] LABS: ALT/SGPT 33 U/L (16-61); AST/SGOT 21 U/L (15-37); Albumin 3.4 g/dL (3.4-5.0); Albumin/Globulin Ratio 1.1 (1.1-1.8); Alkaline Phosphatase 44 U/L (45-117); Anion Gap 7.8 mEq/L (5.0-15.0); BUN Blood Urea Nitrogen 25 mg/dL (7-18); Globulin 3.0 g/dL (2.3-3.5); Glucose Level 103 mg/dL (74-106); Magnesium 2.3 mg/dL (1.6-2.4); NT PRO-BNP 555 pg/mL (<450); Potassium 3.8 mEq/L (3.5-5.1); Troponin High Sensitivity 27.2 pg/mL (<58.9)
[2024-12-20 14:54] LABS: Bilirubin Indirect, Calculated 0.3 mg/dL (0.2-0.8)
--- NOTE | 2024-12-20 15:00 | EDPHYS ---
Physician Documentation [facility] Name: Al Gaspar Age: 89 yrs Sex: Male : 1935 Arrival Date: 12/20/2024 Time: 13:10 Bed 4 Private MD: ED Physician Zach Thorne HPI: 12/20 13:55 This 89 yrs old Male presents to ER via Ambulatory with complaints of General Weakness, sp3 Dizziness. 13:55 89-year-old male with history of atrial fibrillation on Eliquis, hypertension, GERD, sp3 history of bladder cancer who sees Dr. Leon now presents to the ED with chief complaint generalized weakness, feeling of impending doom and mild shortness of breath. Patient also states he felt dizzy and felt like he may "pass out". Patient has a history of CABG as well. ROS otherwise negative.. Historical: - Allergies: 13:24 No Known Allergies; ar8 - Home Meds: 13:24 Eliquis 5 mg Oral tablet 1 tab once [Active]; furosemide 40 mg Oral tablet 1 tab once ar8 [Active]; - PMHx: 13:24 Atrial Fib; Hypertension; GERD; Bladder cancer; ar8 - PSHx: 13:24 Cardiac Ablation; triple bypass; ar8 - Immunization history:: Adult Immunizations up to date, Adult Immunizations. - Infectious Disease History:: Denies. - Social history:: Smoking status: Patient/guardian denies using tobacco. ROS: 13:56 Constitutional: Negative for fever, chills, and weight loss, Eyes: Negative for injury, sp3 pain, redness, and discharge, ENT: Negative for injury, pain, and discharge, Neck: Negative for injury, pain, and swelling, Respiratory: Negative for shortness of breath, cough, wheezing, and pleuritic chest pain, Abdomen/GI: Negative for abdominal pain, nausea, vomiting, diarrhea, and constipation, Back: Negative for injury and pain, MS/Extremity: Negative for injury and deformity, Skin: Negative for injury, rash, and discoloration, Neuro: Negative for headache, weakness, numbness, tingling, and seizure, Psych: Negative for depression, anxiety, suicide ideation, homicidal ideation, and hallucinations, Allergy/Immunology: Negative for hives, rash, and allergies, Endocrine: Negative for neck swelling, polydipsia, polyuria, polyphagia, and marked weight changes, 13:56 All other systems are negative, Exam: 13:56 Constitutional: This is a well developed, well nourished patient who is awake, alert, sp3 and in no acute distress. Head/Face: Normocephalic, atraumatic. Eyes: Pupils equal round and reactive to light, extra-ocular motions intact. Lids and lashes normal. Conjunctiva and sclera are non-icteric and not injected. Cornea within normal limits. Periorbital areas with no swelling, redness, or edema. ENT: Nares patent. No nasal discharge, no septal abnormalities noted. External auditory canals are clear. Oropharynx with no redness, swelling, or masses, exudates, or evidence of obstruction, uvula midline. Mucous membranes moist. Neck: Trachea midline, no thyromegaly or masses palpated, and no cervical lymphadenopathy. Supple, full range of motion without nuchal rigidity, or vertebral point tenderness. No Meningismus. Chest/axilla: Normal chest wall appearance and motion. Nontender with no deformity. No lesions are appreciated. Cardiovascular: Regular rate and rhythm with a normal S1 and S2. No gallops, murmurs, or rubs. Normal PMI, no JVD. No pulse deficits. Respiratory: Lungs have equal breath sounds bilaterally, clear to auscultation and percussion. No rales, rhonchi or wheezes noted. No increased work of breathing, no retractions or nasal flaring. Abdomen/GI: Soft, non-tender, with normal bowel sounds. No distension or tympany. No guarding or rebound. No evidence of tenderness throughout. Back: No spinal tenderness. No costovertebral tenderness. Full range of motion. Skin: Warm, dry with normal turgor. Normal color with no rashes, no lesions, and no evidence of cellulitis. MS/ Extremity: Pulses equal, no cyanosis. Neurovascular intact. Full, normal range of motion. Neuro: Awake and alert, GCS 15, oriented to person, place, time, and situation. Cranial nerves II-XII grossly intact. Motor strength 5/5 in all extremities. Sensory grossly intact. Cerebellar exam normal. Normal gait. Psych: Awake, alert, with orientation to person, place and time. Behavior, mood, and affect are within normal limits. Vital Signs: 13:21 Pulse 80; Resp 18; Temp 97.8; Pulse Ox 99% ; Weight 91.63 kg; Height 5 ft. 6 in. ; Pain ar8 5/10; 13:31 BP 133 / 67; ar8 13:21 Body Mass Index 32.60 (91.63 kg, 167.64 cm) ar8 13:21 Pain Scale: Adult ar8 MDM: 13:35 Medical Screening Exam initiated sp3 13:57 Data reviewed: vital signs, nurses notes, old medical records, lab test result(s), EKG, sp3 radiologic studies. ED course: 89-year-old male with PMH above now with vague symptoms including generalized weakness, near syncope and feeling of impending doom. Differential diagnosis is broad and includes acute coronary syndrome, other viral illness, electro abnormality, dehydration, depression, among others. Workup will be broad and include chest x-ray, abdominal x-ray for constipation, EKG, general labs and general supportive care. Consider observation 23-hour for serial cardiac markers given CABG history and extensive cardiac history including atrial fibrillation.. 12/20 13:46 Order name: Basic Metabolic Panel; Complete Time: 14:54 sp3 12/20 13:46 Order name: CBC with Diff; Complete Time: 14:53 sp3 12/20 13:46 Order name: LFT's; Complete Time: 14:54 sp3 12/20 13:46 Order name: Magnesium; Complete Time: 14:54 sp3 12/20 13:46 Order name: NT PRO-BNP; Complete Time: 14:54 sp3 12/20 13:46 Order name: PT-INR; Complete Time: 14:53 sp3 12/20 13:46 Order name: Troponin HS; Complete Time: 14:54 sp3 12/20 16:05 Order name: Basic Metabolic Panel EDMS 12/20 16:05 Order name: Basic Metabolic Panel EDMS 12/20 16:05 Order name: CBC with Automated Diff EDMS 12/20 16:05 Order name: CBC with Automated Diff EDMS 12/20 16:05 Order name: Lipid Profile EDMS 12/20 16:05 Order name: Lipid Profile EDMS 12/20 16:05 Order name: Troponin High Sensitivity EDMS 12/20 16:05 Order name: Troponin High Sensitivity EDMS 12/20 16:05 Order name: Troponin High Sensitivity EDMS 12/20 16:05 Order name: Troponin High Sensitivity EDMS 12/20 13:46 Order name: XRAY Chest (1 view); Complete Time: 15:23 sp3 12/20 13:46 Order name: Abdomen 1 View XRAY; Complete Time: 15:23 sp3 12/20 16:05 Order name: Echo with Doppler EDMS 12/20 13:46 Order name: EKG; Complete Time: 13:47 sp3 12/20 13:46 Order name: Cardiac monitoring; Complete Time: 14:04 sp3 12/20 13:46 Order name: EKG - Nurse/Tech; Complete Time: 14:04 sp3 12/20 13:46 Order name: IV Saline Lock; Complete Time: 14:08 sp3 12/20 13:46 Order name: Labs collected and sent; Complete Time: 14:08 sp3 12/20 13:46 Order name: O2 Per Protocol; Complete Time: 14:08 sp3 12/20 13:46 Order name: O2 Sat Monitoring; Complete Time: 14:08 sp3 Administered Medications: No medications were administered Disposition Summary: 12/20/24 15:00 Hospitalization Ordered Notes: Hospitalization Status: Observation sp3 Provider: Rehan Menchaca sp3 Location: Telemetry/MedSurg (observation) sp3 Condition: Stable sp3 Problem: an acute exacerbation sp3 Symptoms: have worsened sp3 Bed/Room Type: Standard sp3 Room Assignment: [facility](12/20/24 16:51) eb Diagnosis - Chest pain sp3 Forms: - Medication Reconciliation Form sp3 - SBAR form sp3 - Leadership Thank You Letter sp3 Signatures: Dispatcher [employer] Idalia Sandoval RN RN ss Cora Osorio Setul, MD MD sp3 Dereje Scott RN RN ar8 Corrections: (The following items were deleted from the chart) 16:17 15:00 sp3 16:51 16:[address] [place] [address]
--- NOTE | 2024-12-20 15:00 | ER ---
Nurse's Notes [facility] Name: Al Gaspar Age: 89 yrs Sex: Male : 1935 Arrival Date: 12/20/2024 Time: 13:10 Bed 4 Private MD: Diagnosis: Chest pain Presentation: 12/20 13:21 Chief complaint: Patient states: C/O dizziness, weakness, and abdominal pain x2-3 days. ar8 Coronavirus screen: At this time, the client does not indicate any symptoms associated with coronavirus-19. Ebola Screen: No symptoms or risks identified at this time. Initial Sepsis Screen: Does the patient meet any 2 criteria? No. Patient's initial sepsis screen is negative. Does the patient have a suspected source of infection? No. Patient's initial sepsis screen is negative. Risk Assessment: Do you want to hurt yourself or someone else? Patient reports no desire to harm self or others. Onset of symptoms was December 20, 2024 at 11:00. 13:21 Method Of Arrival: Ambulatory ar8 13:27 Acuity: CRISTINE 3 ar8 Triage Assessment: 13:24 General: Appears uncomfortable, Behavior is calm, cooperative, appropriate for age. ar8 Pain: Complains of pain in abdomen. Historical: - Allergies: 13:24 No Known Allergies; ar8 - Home Meds: 13:24 Eliquis 5 mg Oral tablet 1 tab once [Active]; furosemide 40 mg Oral tablet 1 tab once ar8 [Active]; - PMHx: 13:24 Atrial Fib; Hypertension; GERD; Bladder cancer; ar8 - PSHx: 13:24 Cardiac Ablation; triple bypass; ar8 - Immunization history:: Adult Immunizations up to date, Adult Immunizations. - Infectious Disease History:: Denies. - Social history:: Smoking status: Patient/guardian denies using tobacco. Screenin:45 [facility] ED Fall Risk Assessment (Adult) History of falling in the last 3 months, af3 including since admission No falls in past 3 months (0 pts) Confusion or Disorientation No (0 pts) Intoxicated or Sedated No (0 pts) Impaired Gait No (0 pts) Mobility Assist Device Used No (0 pt) Altered Elimination No (0 pt) Score/Fall Risk Level 0 - 2 = Low Risk. Abuse screen: Denies threats or abuse. Denies injuries from another. Nutritional screening: No deficits noted. Tuberculosis screening: No symptoms or risk factors identified. Assessment: 13:45 General: Appears in no apparent distress. comfortable, well groomed, well developed, af3 Behavior is calm, cooperative, appropriate for age. General: Appears Behavior is. Pain: Denies pain. Pain: Complains of pain in right lower quadrant and left lower quadrant Pain currently is 1 out of 10 on a pain scale. Neuro: Level of Consciousness is awake, alert, obeys commands, Oriented to person, place, time, situation, Appropriate for age. Neuro: Cardiovascular: Patient's skin is warm and dry. Respiratory: Airway is patent Respiratory effort is even, unlabored, Respiratory pattern is regular, symmetrical. GI:. GI: Reports lower abdominal pain. : No signs and/or symptoms were reported regarding the genitourinary system. EENT: No signs and/or symptoms were reported regarding the EENT system. Derm: No signs and/or symptoms reported regarding the dermatologic system. Musculoskeletal: No signs and/or symptoms reported regarding the musculoskeletal system. Vital Signs: 13:21 Pulse 80; Resp 18; Temp 97.8; Pulse Ox 99% ; Weight 91.63 kg; Height 5 ft. 6 in. ; Pain ar8 5/10; 13:31 BP 133 / 67; ar8 13:21 Body Mass Index 32.60 (91.63 kg, 167.64 cm) ar8 13:21 Pain Scale: Adult ar8 ED Course: 13:13 Patient arrived in ED. ts1 13:13 Zach Thorne MD is Attending Physician. sp3 13:24 Triage completed. ar8 13:24 Arm band placed on left wrist. ar8 13:45 Patient has correct armband on for positive identification. Provided Education on: call af3 light use . 13:45 No provider procedures requiring assistance completed. af3 14:08 Inserted saline lock: 20 gauge in right antecubital area, using aseptic technique. af3 Blood collected. Flushed with 10 mL NS. 14:09 Initial lab(s) drawn, by me, sent to lab. af3 15:00 Rehan Menchaca is Hospitalizing Provider. sp3 15:02 XRAY Chest (1 view) In Process Unspecified. EDMS 15:02 Abdomen 1 View XRAY In Process Unspecified. EDMS 17:17 Patient admitted, IV remains in place. hb Administered Medications: No medications were administered Medication: 13:45 VIS not applicable for this client. af3 Outcome: 15:00 Decision to Hospitalize by Provider. sp3 17:14 Admitted to Med/surg accompanied by tech, via wheelchair, room 431, with chart, Report hb called to dom santos 17:14 Condition: stable 17:14 Instructed on the need for admit, 17:19 Patient left the ED. hb Signatures: Dispatcher [facility] EDID Julieta Neff RN RN Zach Thorne MD MD sp3 Maddy Pineda, PALAK PAS ts1 Katie Molina RN RN af3 Dereje Scott RN RN ar8 Corrections: (The following items were deleted from the chart) 13:27 13:21 Acuity: CRISTINE 2 ar8 ar8
--- NOTE | 2024-12-20 15:17 | RAD REPORT ---
Exam:Abdomen Single View Clinical history: Abdominal pain. Constipation FINDINGS: The bowel gas pattern is unremarkable. Moderate amount of stool throughout the colon. Surgical clips throughout the pelvis No significant abnormal calcification is displayed.
--- NOTE | 2024-12-20 15:18 | RAD REPORT ---
Procedure: Chest Single View HISTORY: Chest pain COMPARISON: 2023 FINDINGS: The lungs appear clear of acute infiltrate. No significant pleural effusion noted. The heart is borderline enlarged. IMPRESSION: No acute abnormality is displayed.
--- NOTE | 2024-12-20 15:46 | P.HP ---
Certification for Inpatient Patient admitted to: Observation With expected LOS: <2 Midnights Practitioner: I am a practitioner with admitting privileges, knowledge of patient current condition, hospital course, and medical plan of care. Services: Services provided to patient in accordance with Admission requirements found in Title 42 Section 412.3 of the Code of Federal Regulations Patient History Date of Service: 12/20/24 Reason for admission: Shortness of breath and lightheadedness History of Present Illness: 89-year-old gentleman with a history of atrial fibrillation status post ablation, on chronic anticoagulation, not on any rate control medications or anti-arrhythmias presented to the emergency department with a complaint of intermittent episodes of lightheadedness and shortness of breath with exertion. Patient also reported an episode of abdominal pain today. He reported frequent constipation, and that he was constipated for a few days before bowel movement yesterday. Patient denied any chest pain. He denied any palpitation. In the ER, EKG showed sinus rhythm, no ST-T changes. Chest x-ray did not show any acute disease. KUB showed moderate amount of stool throughout the colon. Blood pressure mostly within normal range. Initial troponin negative. Patient is hospitalized for further evaluation and management. Allergies No Known Allergies Allergy (Verified 03/25/24 09:20) Home Medications: Atorvastatin Calcium [Lipitor] 20 mg PO DAILY 06/06/11 Pantoprazole Sodium 40 mg PO DAILY 07/26/15 Apixaban [Eliquis] 1 tab PO BID 03/25/24 Donepezil HCl [Aricept] 10 mg PO BID 03/25/24 Fluoxetine HCl [Prozac] 10 mg PO DAILY 03/25/24 Furosemide [Lasix 40 MG INJ*] 1 vial PO DAILY 03/25/24 Memantine HCl 10 mg PO BID 03/25/24 Metoprolol Tartrate [Lopressor] 25 mg PO DAILY 03/25/24 Potassium Chloride 1 tab PO DAILY 03/25/24 - Past Medical/Surgical History Diabetic: No -: HTN -: AFib -: High Cholesterol -: Bladder Cancer -: Appendectomy -: Hernia Repair -: Artificial Bladder - Family History Mother -: Heart disease Father -: Heart disease Brother -: Heart disease Notes: Brother has had bypass surgery Sister -: Heart disease Notes: Sister has pacemaker/defibrillator - Social History Alcohol use: No CD- Drugs: No Caffeine use: No Review of Systems Other: Patient denies any diarrhea, denies any nausea or vomiting. Patient denies any headache, no fever, no cough. Except as documented, all other systems reviewed and negative. Physical Examination - Physical Exam General: Alert, In no apparent distress, Oriented x3 HEENT: Atraumatic, Normocephalic, Mucous membr. moist/pink, EOMI, Sclerae nonicteric Neck: Supple, JVD not distended Respiratory: Clear to auscultation bilaterally, Normal air movement Cardiovascular: No edema, Regular rate/rhythm, Normal S1 S2, Systolic murmur Capillary refill: <2 Seconds Gastrointestinal: Normal bowel sounds, Soft and benign, Non-distended Musculoskeletal: No swelling, No tenderness Integumentary: No rashes, No cyanosis Neurological: Normal speech, Normal strength at 5/5 x4 extr, Cranial nerves 3-12 intact Lymphatics: No axilla or inguinal lymphadenopathy - Studies Laboratory Data (last 24 hrs) 12/20/24 12/20/24 12/20/24 14:06 14:06 14:06 WBC 6.20 Hgb 13.1 L Hct 38.3 L Plt Count 232 PT 18.8 H INR 1.69 Sodium 143 Potassium 3.8 BUN 25 H Creatinine 1.30 Glucose 103 Magnesium 2.3 Total Bilirubin 0.5 AST 21 ALT 33 Alkaline Phosphatase 44 L Assessment and Plan - Plan Diagnosis Dyspnea on exertion Atrial fibrillation status post ablation History CAD status post CABG Dementia Abdominal pain Functional constipation Plan: Dyspnea on exertion associated with lightheadedness Patient with significant coronary artery disease risk factors including history of CABG Place patient on observation Differential diagnosis for dyspnea on exertion: ACS, arrhythmia, valvular heart disease, heart failure. Trend troponin Obtain echocardiogram Cardiac monitoring. Check orthostatic vitals. Continue Eliquis for A-fib anticoagulation Laxatives and stool softeners for constipation Analgesics as needed. DVT prophylaxis: On eliquis Advanced directive: Full code - Advance Directives Does patient have a Living Will: No Does patient have a Durable POA for Healthcare: No
[2024-12-20] MEDS ORDERED: ACETAMINOPHEN 500 MG TAB PO PRN (16:00)
[2024-12-20] MEDS ORDERED: MORPHINE 2 MG/ML SYR IV PRN (16:00)
[2024-12-20] MEDS ORDERED: NITROGLYCERIN 0.4 MG/TAB SL PRN (16:00)
[2024-12-20] MEDS: MAGNESIUM HYDROXIDE 8% 30 ML ONE (19:35)
[2024-12-20] MEDS: MAGNESIUM HYDROXIDE 8% 30 ML PO ONE (19:40)
[2024-12-20] MEDS: APIXABAN 5 MG TABLET PO SCH (19:40)
[2024-12-20] MEDS: MEMANTINE HCL 10 MG TABLET PO SCH (19:41)
[2024-12-21 05:46] LABS: Absolute Lymphocytes (CBC) 1.6 K/uL (0.7-4.9); Hematocrit 37.3 % (39.6-49.0); Hemoglobin 12.9 g/dL (13.6-17.9); MCH 31.6 pg (27.0-35.0); MCHC 34.7 g/dL (32.0-36.0); MCV 91.0 fL (80-100); MPV 7.1 fL (7.6-11.3); Nucleated RBC Absolute Count 0.0 (0-0); Nucleated Red Blood Cells % 0.1 % (0-0); RBC Red Blood Cell Count 4.09 M/uL (4.33-5.43); White Blood Count 6.50 thou/uL (4.3-10.9)
[2024-12-21 06:07] LABS: Anion Gap 8.4 mEq/L (5.0-15.0); BUN Blood Urea Nitrogen 27.0 mg/dL (7-18); Glucose Level 114.0 mg/dL (74-106); HDL Cholesterol 44.0 mg/dL (40-60); LDL Cholesterol, Calculated 69.0 mg/dL (<130); LDL Cholesterol,Calc NonReport 69.0; Potassium 4.4 mEq/L (3.5-5.1); Troponin High Sensitivity 26.6 pg/mL (<58.9)
[2024-12-21] MEDS: ATORVASTATIN 20 MG TAB PO SCH (08:59)
[2024-12-21] MEDS: ASPIRIN EC 81 MG TAB PO SCH (08:59)
--- NOTE | 2024-12-21 16:40 | P.PN ---
Subjective Date of Service: 12/21/24 Chief Complaint: Shortness of breath and lightheadedness Patient denies any new complaint. He states he feels fine and wants to go home. No complaints overnight. compliance monitor showed a few cardiac pauses. Physical Examination - Vital Signs Temperature: 97.9 F Blood Pressure: 150/66 Pulse: 68 Respirations: 17 Pulse Ox (%): 96 Assessment And Plan - Plan Physical examination General: Alert and oriented x3, NAD, HEENT: Conjunctiva not pale, anicteric sclera Neck: Supple, no elevated JVD Heart: Heart sounds 1 and 2 normal, regular rhythm, normal rate, no pedal edema Lungs: Clear to auscultation bilaterally, adequate breath sounds bilaterally, no rhonchi or crackles. Abdomen: Soft, nondistended, nontender, normal bowel sounds. Extremities: No tenderness, no deformity Skin: Normal skin turgor, no rash, no nodules or ulcers. Neuro: No focal motor deficit. Normal speech. Psychiatry: Normal mood, no agitation. Diagnosis Dyspnea on exertion Atrial fibrillation status post ablation History CAD status post CABG Dementia Abdominal pain Functional constipation Plan: Dyspnea on exertion associated with lightheadedness Patient with significant coronary artery disease risk factors including history of CABG Troponin trended negative. Telemetry is showing few cardiac pauses. Remote echocardiogram results reviewed and noted patient has aortic sclerosis without stenosis. Cardiology consulted due to cardiac pauses in the context of history of cardiac ablation Echocardiogram is pending Continue cardiac monitoring Continue Eliquis for A-fib anticoagulation DVT prophylaxis: On eliquis Advanced directive: Full code
[2024-12-21 18:18] VITALS: BMI 32.5
[2024-12-21] MEDS: DOCUSATE NA 100 MG CAP PO SCH (20:09)
--- NOTE | 2024-12-21 21:22 | CON ---
Date of Consultation: 12/21/2024 Reason For Consultation: Shortness of breath. History Of Present Illness: An 89-year-old male, history of atrial fibrillation, on anticoagulation, dyslipidemia, hypertension, and diastolic heart failure, presented to the emergency room because of generalized dizziness and shortness of breath on activities. Denies having any chest pain. Past Medical History: As outlined above in the HPI. Medications: Refer to reconciliation sheet for detailed list. Allergies: NO KNOWN DRUG ALLERGIES. Family History: No premature coronary artery disease or cancer. Social History: Does not smoke or drink. Does not use any drugs. Review of Systems: All systems reviewed and they were negative except as mentioned in the HPI. Physical Examination: Vital Signs: Reviewed. Head and Neck: Pupils are equal, reactive to light. Intact eye movements. No JVD. No cervical lym phadenopathy. Neck is supple. Thyroid is not enlarged. Lungs: Clear to auscultation bilaterally. No rhonchi, wheezing, or crackles. No accessory muscle u se. Heart: Regular rate and rhythm. No extra sounds. Abdomen: Soft, nontender. Bowel sounds positive. No organomegaly. No masses or hernia. No rigid ity or rebound. Extremities: No edema, clubbing, cyanosis. Intact pulses. Skin: No rash, no nodules. Neuro: Alert, awake, oriented x3. No acute focal deficits appreciated. Lymph Nodes: No cervical, axillary lymphadenopathy. Investigations: Troponins are negative. NT-proBNP is 555. BUN is 27, creatinine 1.40. Chest x-ray was normal. Assessment/recommendation: 1. Shortness of breath. Chest x-ray is normal. Cardiac enzymes are normal. Check D-dimer and if th at is positive, recommend CT. From the cardiac standpoint, I recommend outpatient followup. The pat ient will follow up with us in the office. He had recent workup. Will evaluate and plan accordingly . 2. Dizziness. Blood pressure looks okay. Keep monitoring on telemetry. Plan accordingly. 3. Atrial fibrillation, rate is controlled on Eliquis. Continue current therapy. 4. Dyslipidemia, on statin. Continue current treatment. Cardiology will sign off. To follow up on outpatient basis. SR/LUDYL Voice ID: [id number] Report ID: [id number]
[2024-12-22 08:14] VITALS: BP 154/67; TEMP 97.7
[2024-12-22 09:01] VITALS: O2SAT 97
--- NOTE | 2024-12-22 15:30 | ECHO ---
HEIGHT: 5 ft 6 in WEIGHT: 202 lb 0 oz DATE OF STUDY: 12/22/[address]: Rehan Menchaca MD 2-DIMENSIONAL: YES M.MODE: YES DOPPLER: YES COLOR FLOW: YES TDS: PORTABLE: YES DEFINITY: BUBBLE STUDY: DIAGNOSIS: DYSPNEA ON EXERTION CARDIAC HISTORY: CATHERIZATION: YES SURGERY: CABG PROSTHETIC VALVE: NO PACEMAKER: NO MEASUREMENTS (cm) DIASTOLIC (NORMALS) SYSTOLIC (NORMALS) IVSd 1.3 (0.6-1.2) LA Diam 4.0 (1.9-4.0) LVEF 60-65% LVIDd 3.8 (3.5-5.7) LVIDs 2.6 (2.0-3.5) %FS 33% LVPWd 1.4 (0.6-1.2) Ao Diam 3.0 (2.0-3.7) 2 DIMENSIONAL ASSESSMENT: RIGHT ATRIUM: NORMAL LEFT ATRIUM: MILD DILATED RIGHT VENTRICLE: NORMAL LEFT VENTRICLE: MILD LEFT VENTRICULAR HYPERTROPHY TRICUSPID VALVE: MILD TRICUSPID REGURGITATION MITRAL VALVE: MITRAL ANNULAR CALCIFICATION, MILD MITRAL REGURGITATION PULMONIC VALVE: NORMAL AORTIC VALVE: CALCIFIED, MILD AORTIC REGURGITATION PERICARDIAL EFFUSION: NONE AORTIC ROOT: NORMAL LEFT VENTRICULAR WALL MOTION: NORMAL DOPPLER/COLOR FLOW: DIASTOLIC DYSFUNCTION COMMENTS: 1. NORMAL LEFT VENTRICULAR SYSTOLIC FUNCTION, EJECTION FRACTION 60-65%, NORMAL WALL MOTION 2. DIASTOLIC DYFUNCTION 3. MILD MITRAL REGURGITATION, MILD AORTIC REGURGITATION 4. MODERATE PULMONARY HYPERTENSION (RIGHT VENTRICULAR SYSTOLIC PRESSURE 40-50 mmHg) 5. NORMAL FILLING PRESURE, RIGHT ATRIAL PRESSURE 0-5 mmHg TECHNOLOGIST: HUY BRITO [facility]
--- NOTE | 2024-12-22 19:29 | DS ---
Date of Discharge: 12/22/2024 Disposition: Discharged to go home. Physical Examination: HEENT: Unremarkable. Lungs: Clear to auscultation. Heart: Sounds normal. Presence of systolic murmur. No gallop. Abdomen: Soft. Bowel sounds normal. No guarding, rigidity, tenderness, distention. Extremities: No leg edema. Discharge Medications And Instructions: 1. Continue all prior home medications. 2. Follow up at my office next week. 3. Follow up with [facility] in 2 to 3 weeks. Laboratory Data: On 12/20/2024, WBC 6.2, hemoglobin 13.1, platelets 232, sodium 143, potassium 3.8, chloride 109, bicarb 30, BUN 25, creatinine 1.30, glucose 103. Liver function tests unremarkable. F irst troponin 27.2, second troponin 26.1, third troponin 26.6, and fourth troponin 23.8. Last blood work from yesterday, sodium 143, potassium 4.4, chloride 109, bicarb 30, BUN 27, creatinine 1.40, glu cose 114, triglyceride 128, total cholesterol 139, LDL 69, HDL 44. WBC 6.5, hemoglobin 12.9, platele ts 196. His proBNP upon admission was 555. D-dimer done today was normal. Chest x-ray, no acute ca rdiopulmonary changes. Abdominal x-ray was unremarkable. Hospital Course: This is an 89-year-old male patient, who came into emergency room day before yester day with complaints of dizziness and shortness of breath. The patient's had contacted me and fatuma was advised to bring the patient to emergency room. After the patient was evaluated in the emergen cy room, he was admitted to hospital under Hospitalist Service as I was out of town. I saw the patie nt this morning and I have reviewed hospital record including emergency room visit record as well as H and P and progress note done by Hospitalist and consultation from Dr. Ortiz. This morning when I saw the patient, he was lying in bed, not in distress. He denies any complaints. Reports that overa ll he has felt better since his admission and he feels like he is well enough to go back home. He de nies any paroxysmal nocturnal dyspnea or orthopnea. No chest pain. This is an 89-year-old pleasant male patient, who was admitted to the hospital with complaints of diz ziness and shortness of breath. Please see H and P done by Hospitalist Team. After the patient was evaluated in the emergency room, he was admitted to hospital. [place] was ruled out and his other usual h ome medications were continued. The patient remained on telemetry and he remained in sinus rhythm. His Eliquis that he takes at home was continued. Hospitalist had mentioned about equipment sterilizer s howing some pauses, so Cardiology consultation was requested by him and I did review telemetry monito r readings with technical sales support manager this morning and also available rhythm strips in the chart and what it shows is sinus rhythm with evidence of blocked PAC. There is no significant pause noted, that reall y not of any clinical concern or significance. Cardiology consultation was requested by Hospitalist and I have reviewed cardiology consultation note. All the details were discussed with the patient to day and after D-dimer which came back negative, the patient was discharged to go home and I have inst ructed him to continue all his previously prescribed home medications. The patient does have history of aortic stenosis. Last echocardiogram from July 16, 2024, done on o utpatient basis had shown ejection fraction 60% to 65%, moderate to severe aortic stenosis. Final Diagnoses: 1. Aortic stenosis. 2. Hypertension. 3. Hyperlipidemia. 4. Chronic kidney disease stage IIIA. 5. Impaired fasting glucose. 6. Paroxysmal atrial fibrillation. 7. Chronic anticoagulation therapy. 8. Gastroesophageal reflux disease. 9. Anemia, unspecified. Total time spent 35 minutes. YOBANY/MODL Voice ID: [id number] Report ID: [id number]
== END 2024-12-22 10:57 | disposition home or self-care (01) ==
LOC: ER 13:10 → ERHOLD 15:59 → 4TH 16:35
PROVIDERS: ADMIT Internal Medicine; ATTEND Internal Medicine
DX: R06.02 Shortness of breath (principal); R42 Dizziness and giddiness; I48.11 Longstanding persistent atrial fibrillation; R10.9 Unspecified abdominal pain; K59.00 Constipation, unspecified; I25.10 Atherosclerotic heart disease of native coronary artery without angina pectoris; F03.90 Unspecified dementia, unspecified severity, without behavioral disturbance, psychotic disturbance, mood disturbance, and anxiety; Z95.1 Presence of aortocoronary bypass graft; Z79.01 Long term (current) use of anticoagulants; E78.5 Hyperlipidemia, unspecified; I50.32 Chronic diastolic (congestive) heart failure; I35.0 Nonrheumatic aortic (valve) stenosis; I12.9 Hypertensive chronic kidney disease with stage 1 through stage 4 chronic kidney disease, or unspecified chronic kidney disease; N18.31 Chronic kidney disease, stage 3a; R73.01 Impaired fasting glucose; K21.9 Gastro-esophageal reflux disease without esophagitis; D64.9 Anemia, unspecified
CPT/HCPCS: 36415; 71045; 74018; 80048; 80061; 80076; 83735; 83880; 84484; 85025; 85379; 85610; 93005; 93306; 94760; 99285; G0378

== ENCOUNTER 2024-12-25 13:08 | Observation (INO) | payer OTHER ==
[2024-12-25] MEDS ORDERED: NA CHLORIDE 0.9% 500 ML ONE (13:52)
[2024-12-25] MEDS ORDERED: FAMOTIDINE 20 MG/2 ML VIAL IV ONE (13:52)
[2024-12-25] MEDS ORDERED: ASPIRIN 81 MG CHEWABLE TABLET ONE (13:53)
[2024-12-25 13:54] LABS: Absolute Lymphocytes (CBC) 1.4 K/uL (0.7-4.9); Hematocrit 40.8 % (39.6-49.0); Hemoglobin 13.8 g/dL (13.6-17.9); MCH 30.6 pg (27.0-35.0); MCHC 33.8 g/dL (32.0-36.0); MCV 90.7 fL (80-100); MPV 7.1 fL (7.6-11.3); Nucleated RBC Absolute Count 0.0 (0-0); Nucleated Red Blood Cells % 0.0 % (0-0); RBC Red Blood Cell Count 4.50 M/uL (4.33-5.43); White Blood Count 8.90 thou/uL (4.3-10.9)
[2024-12-25 14:01] LABS: PT Prothrombin Time 20.7 SECONDS (10-13.0); Protime INR 1.87
[2024-12-25 14:14] LABS: ALT/SGPT 38.0 U/L (16-61); AST/SGOT 19.0 U/L (15-37); Albumin 3.6 g/dL (3.4-5.0); Albumin/Globulin Ratio 1.1 (1.1-1.8); Alkaline Phosphatase 47.0 U/L (45-117); Anion Gap 9.3 mEq/L (5.0-15.0); BUN Blood Urea Nitrogen 25.0 mg/dL (7-18); Bilirubin Indirect, Calculated 0.4 mg/dL (0.2-0.8); Globulin 3.3 g/dL (2.3-3.5); Glucose Level 153.0 mg/dL (74-106); Lipase 30.0 U/L (13-75); Magnesium 2.4 mg/dL (1.6-2.4); NT PRO-BNP 312.0 pg/mL (<450); Potassium 4.3 mEq/L (3.5-5.1); Troponin High Sensitivity 23.0 pg/mL (<58.9)
--- NOTE | 2024-12-25 14:18 | RAD REPORT ---
EXAMINATION: ONE VIEW CHEST XR CLINICAL INDICATION: Male, 89 years old.,CHEST PAIN TECHNIQUE: Frontal chest projection is submitted. Examination is limited by patient positioning and t echnique. COMPARISON: 12/20/2024 FINDINGS: The lungs are well inflated with stable bibasilar atelectatic changes and probable trace bilateral ef fusions. No pneumothorax. The heart is normal in size. Mediastinal contours are unchanged with sequelae of median sternotomy.. IMPRESSION: Stable findings as above.
[2024-12-25 14:34] LABS: Sqamous Epithelial <5 /HPF (None Seen); Urine Culture Reflex Order REFLEXED; Urine Microscopic Reflex YN ORDER UMIC; Urine Yeast (Budding) Trace /HPF (None Seen)
--- NOTE | 2024-12-25 14:47 | ER ---
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 Coronavirus screen: Client denies travel out of the [place] in the last 14 days. Ebola Screen: Patient negative for fever greater than or equal to 101.5 degrees Fahrenheit, and additional compatible Ebola Virus Disease symptoms Patient denies exposure to infectious person. Patient denies travel to an Ebola-affected area in the 21 days before illness onset. Initial Sepsis Screen: Does the patient meet any 2 criteria? No. Patient's initial sepsis screen is negative. Does the patient have a suspected source of infection? No. Patient's initial sepsis screen is negative. Risk Assessment: Do you want to hurt yourself or someone else? Patient reports no desire to harm self or others. Onset of symptoms was December 25, 2024. Care prior to arrival: IV initiated. 20 GA, in the left hand, Glucose check: 154. 13:18 Method Of Arrival: EMS: [facility] rg5 13:18 Acuity: CRISTINE 3 rg5 Triage Assessment: 13:23 General: Appears in no apparent distress. Behavior is calm, cooperative, appropriate rg5 for age. General: Reports. Pain: Complains of pain in chest Pain currently is 2 out of 10 on a pain scale. Quality of pain is described as aching. Neuro: Level of Consciousness is awake, alert, obeys commands, Oriented to person, place, time, situation. Neuro: Reports dizziness, weakness. Cardiovascular: Reports chest pain. Respiratory: Airway is patent Trachea midline Respiratory effort is even, unlabored. Historical: - Allergies: 13:23 No Known Allergies; rg5 - Home Meds: 13:23 Eliquis 5 mg Oral tablet 1 tab once [Active]; furosemide 40 mg Oral tablet 1 tab once rg5 [Active]; - PMHx: 13:23 Atrial Fib; Bladder cancer; GERD; Hypertension; rg5 - PSHx: 13:23 Cardiac Ablation; triple bypass; rg5 - Immunization history:: Adult Immunizations up to date. - Infectious Disease History:: Denies. - Social history:: Smoking status: Patient denies any tobacco usage or history of. - Family history:: not pertinent. Screenin:35 [facility] ED Fall Risk Assessment (Adult) History of falling in the last 3 months, rg5 including since admission No falls in past 3 months (0 pts) Confusion or Disorientation No (0 pts) Intoxicated or Sedated No (0 pts) Impaired Gait Yes (1 pt) Mobility Assist Device Used Yes (1 pt) Altered Elimination Yes (1 pt) Score/Fall Risk Level 3 or more points = High Risk Oriented to surroundings, Maintained a safe environment, Used ambulatory aids as needed (educated on \T\ assisted with). Abuse screen: Denies threats or abuse. Nutritional screening: No deficits noted. Tuberculosis screening: No symptoms or risk factors identified. Assessment: 13:35 Reassessment: see triage assessment. rg5 14:00 Pain: Complains of pain in chest Pain does not radiate. Pain currently is 2 out of 10 rg5 on a pain scale. Pain began 1 hour ago. 14:00 Reassessment: Patient and/or family updated on plan of care and expected duration. Pain rg5 level reassessed. Patient is alert, oriented x 3, equal unlabored respirations, skin warm/dry/pink. 15:30 Reassessment: Patient and/or family updated on plan of care and expected duration. Pain rg5 level reassessed. Patient is alert, oriented x 3, equal unlabored respirations, skin warm/dry/pink. 16:24 Reassessment: No changes from previously documented assessment. Patient and/or family rg5 updated on plan of care and expected duration. Pain level reassessed. Patient is alert, oriented x 3, equal unlabored respirations, skin warm/dry/pink. Vital Signs: 13:18 BP 183 / 88; Pulse 89; Resp 18; Temp 98; Pulse Ox 99% on R/A; Weight 90 kg; Height 5 rg5 ft. 6 in. ; Pain 2/10; 13:25 BP 183 / 88; Pulse 89; Resp 18; Pulse Ox 99% ; Pain 2/10; rg5 14:00 BP 180 / 69; Pulse 89; Resp 18; Pulse Ox 98% ; rg5 15:30 BP 170 / 78; Pulse 72; Resp 18; Pulse Ox 97% ; rg5 16:02 BP 164 / 73; Pulse 73; Resp 17; Pulse Ox 97% ; rg5 13:18 Body Mass Index 32.02 (90.00 kg, 167.64 cm) rg5 13:18 Pain Scale: Adult rg5 13:25 Pain Scale: Adult rg5 [place] Coma Score: 13:49 Eye Response: spontaneous(4). Motor Response: obeys commands(6). Verbal Response: elmira oriented(5). Total: 15. ED Course: 13:16 Patient arrived in ED. rg5 13:17 Justo Ayala, [facility] is Primary Nurse. rg5 13:20 Geoffrey Glover MD is Attending Physician. [facility] 13:23 Triage completed. rg5 13:35 Patient has correct armband on for positive identification. Bed in low position. Call rg5 light in reach. Side rails up X 1. Client placed on continuous cardiac and pulse oximetry monitoring. NIBP monitoring applied. certified control systems technician on. Pulse ox on. Door closed. Noise minimized. Warm blanket given. 13:35 Arm band placed on left wrist. rg5 13:35 No provider procedures requiring assistance completed. Maintain EMS IV. Dressing rg5 intact. Good blood return noted. Site clean \T\ dry. Gauge \T\ site: 20g left hand. Flushed with 10 mL NS. Patient maintains SpO2 saturation greater than 95% on room air. 13:57 XRAY Chest (1 view) In Process Unspecified. EDMS 14:45 Lupillo Leon MD is Hospitalizing Provider. [facility] 16:27 Provided Education on: needs for admit. rg5 16:27 Patient admitted, IV remains in place. rg5 Administered Medications: 13:57 Drug: NS 0.9% IV 500 ml 500 ml IV at 100 ml/hr once; to be given as a bolus over 30 rg5 minutes Volume: 500 ml; Route: IV; Rate: 100 ml/hr; Site: left hand; 14:27 Follow up: IV Status: Completed infusion; IV Intake: 500ml rg5 13:58 Drug: Aspirin PO Chewable Tablet 324 mg PO once; 81 mg tablets x 4 Route: PO; rg5 14:28 Follow up: Response: No adverse reaction rg5 13:58 Drug: Famotidine IVP 20 mg IVP once; dilute with 10 mL 0.9% NaCl; give over 2 minutes rg5 Route: IVP; Site: left hand; 14:28 Follow up: Response: No adverse reaction rg5 15:00 Drug: Rocephin IV 1 grams IV at per protocol once; Given slow IV push per pharmacy rg5 instructions Route: IV; Rate: per protocol; Site: left hand; 15:29 Follow up: IV Status: Completed infusion; IV Intake: 50ml rg5 Medication: 13:35 VIS not applicable for this client. rg5 Intake: 14:27 IV: 500ml; Total: 500ml. rg5 15:29 IV: 50ml; Total: 550ml. rg5 Outcome: 14:46 Decision to Hospitalize by Provider. [place] 16:27 Admitted to Med/surg via wheelchair, rg5 16:27 Condition: stable 16:27 Instructed on the need for admit, 17:03 Patient left the ED. rg5 Signatures: Dispatcher [employer] EDGeoffrey Valencia MD MD cha Gallardo, Rommel, RN RN rg5 Corrections: (The following items were deleted from the chart) 16:27 13:35 Admitted to Med/surg accompanied by tech, via wheelchair, rg5 rg5 16:27 13:35 Condition: stable rg5 rg5 16:27 13:35 Instructed on the need for admit, rg5 rg5
--- NOTE | 2024-12-25 14:47 | EDPHYS ---
Physician Documentation [facility] Name: Al Gaspar Age: 89 yrs Sex: Male : 1935 Arrival Date: 12/25/2024 Time: 13:08 Bed 14 Private MD: AMANDA Physician Geoffrey Glover HPI: 12/25 13:49 This 89 yrs old Male presents to ER via EMS with complaints of Dizziness, elmira General Weakness, Chest Pain. 13:49 The patient presents with dizziness, generalized weakness. Onset: The symptoms/episode elmira began/occurred this morning, today. Context: occurred at home, occurred while the patient was walking. Modifying factors: The symptoms are alleviated by nothing, the symptoms are aggravated by nothing. Associated signs and symptoms: Pertinent positives: chest pain. Patient's baseline: Neuro: alert and fully oriented. The patient has experienced similar episodes in the past, multiple times. Historical: - Allergies: 13:23 No Known Allergies; rg5 - Home Meds: 13:23 Eliquis 5 mg Oral tablet 1 tab once [Active]; furosemide 40 mg Oral tablet 1 tab once rg5 [Active]; - PMHx: 13:23 Atrial Fib; Bladder cancer; GERD; Hypertension; rg5 - PSHx: 13:23 Cardiac Ablation; triple bypass; rg5 - Immunization history:: Adult Immunizations up to date. - Infectious Disease History:: Denies. - Social history:: Smoking status: Patient denies any tobacco usage or history of. - Family history:: not pertinent. ROS: 13:49 Constitutional: Negative for fever, chills, and weight loss, Eyes: Negative for injury, [place]mira pain, redness, and discharge, ENT: Negative for injury, pain, and discharge, Neck: Negative for injury, pain, and swelling, Respiratory: Negative for shortness of breath, cough, wheezing, and pleuritic chest pain, Abdomen/GI: Negative for abdominal pain, nausea, vomiting, diarrhea, and constipation, Back: Negative for injury and pain, : Negative for injury, bleeding, discharge, and swelling, MS/Extremity: Negative for injury and deformity, Skin: Negative for injury, rash, and discoloration, Neuro: Negative for headache, weakness, numbness, tingling, and seizure, Psych: Negative for depression, anxiety, suicide ideation, homicidal ideation, and hallucinations, Allergy/Immunology: Negative for hives, rash, and allergies, Endocrine: Negative for neck swelling, polydipsia, polyuria, polyphagia, and marked weight changes, Hematologic/Lymphatic: Negative for swollen nodes, abnormal bleeding, and unusual bruising, 13:49 Neck: Positive for 13:49 Cardiovascular: Positive for chest pain, palpitations, Exam: 13:49 Constitutional: This is a well developed, well nourished patient who is awake, alert, elmira and in no acute distress. Head/Face: Normocephalic, atraumatic. Eyes: Pupils equal round and reactive to light, extra-ocular motions intact. Lids and lashes normal. Conjunctiva and sclera are non-icteric and not injected. Cornea within normal limits. Periorbital areas with no swelling, redness, or edema. ENT: Nares patent. No nasal discharge, no septal abnormalities noted. Tympanic membranes are normal and external auditory canals are clear. Oropharynx with no redness, swelling, or masses, exudates, or evidence of obstruction, uvula midline. Mucous membranes moist. Neck: Trachea midline, no thyromegaly or masses palpated, and no cervical lymphadenopathy. Supple, full range of motion without nuchal rigidity, or vertebral point tenderness. No Meningismus. Chest/axilla: Normal chest wall appearance and motion. Nontender with no deformity. No lesions are appreciated. Cardiovascular: Regular rate and rhythm with a normal S1 and S2. No gallops, murmurs, or rubs. Normal PMI, no JVD. No pulse deficits. Respiratory: Lungs have equal breath sounds bilaterally, clear to auscultation and percussion. No rales, rhonchi or wheezes noted. No increased work of breathing, no retractions or nasal flaring. Abdomen/GI: Soft, non-tender, with normal bowel sounds. No distension or tympany. No guarding or rebound. No evidence of tenderness throughout. Back: No spinal tenderness. No costovertebral tenderness. Full range of motion. Male : Normal genitalia with no discharge or lesions. Skin: Warm, dry with normal turgor. Normal color with no rashes, no lesions, and no evidence of cellulitis. MS/ Extremity: Pulses equal, no cyanosis. Neurovascular intact. Full, normal range of motion., bilateral aka Neuro: Awake and alert, GCS 15, oriented to person, place, time, and situation. Cranial nerves II-XII grossly intact. Motor strength 5/5 in all extremities. Sensory grossly intact. Cerebellar exam normal. Normal gait. Psych: Awake, alert, with orientation to person, place and time. Behavior, mood, and affect are within normal limits. 13:49 Musculoskeletal/extremity: ROM: no acute changes, intact in all extremities, full active range of motion, full passive range of motion, Circulation is intact in all extremities. Sensation intact. Compartment Syndrome exam of affected extremity: is normal. Weight bearing: able to fully bear weight, DVT Exam: No signs of deep vein thrombosis. no pain, no swelling, no tenderness, negative Homans' sign noted on exam, no appreciated bluish discoloration, no erythema, no increased warmth, 14:58 ECG was reviewed by the Attending Physician. [facility] Vital Signs: 13:18 BP 183 / 88; Pulse 89; Resp 18; Temp 98; Pulse Ox 99% on R/A; Weight 90 kg; Height 5 rg5 ft. 6 in. ; Pain 2/10; 13:25 BP 183 / 88; Pulse 89; Resp 18; Pulse Ox 99% ; Pain 2/10; rg5 14:00 BP 180 / 69; Pulse 89; Resp 18; Pulse Ox 98% ; rg5 15:30 BP 170 / 78; Pulse 72; Resp 18; Pulse Ox 97% ; rg5 16:02 BP 164 / 73; Pulse 73; Resp 17; Pulse Ox 97% ; rg5 13:18 Body Mass Index 32.02 (90.00 kg, 167.64 cm) [facility] 13:18 Pain Scale: Adult rg5 13:25 Pain Scale: Adult rg5 Kay Coma Score: 13:49 Eye Response: spontaneous(4). Motor Response: obeys commands(6). Verbal Response: elmira oriented(5). Total: 15. MDM: 13:20 Medical Screening Exam initiated [facility] 13:52 Differential diagnosis: cardiac arrhythmia, CVA, generalized weakness, GI bleed, [place]mira hypovolemia, idiopathic dizziness, near-syncope, , sepsis, syncope, TIA, vertigo. Data reviewed: vital signs, nurses notes, lab test result(s), EKG, radiologic studies, plain films. Consideration of Admission/Observation Patient was admitted/placed on observation. Escalation of care including admission/observation considered. I considered the following discharge prescriptions or medication management in the emergency department Medications were administered in the Emergency Department. See MAR. Independent interpretation of the following test(s) in the Emergency Department EKG: See my EKG interpretation above. Test considered but Not performed: Ultrasound NO 2 D ECHO. Care significantly affected by the following chronic conditions: A FIB, BLADDER CANCER, GERD, ESSENT HTN. 12/25 13:33 Order name: Basic Metabolic Panel; Complete Time: 14:43 [facility] 12/25 13:33 Order name: CBC with Diff; Complete Time: 14:43 [facility] 12/25 13:33 Order name: LFT's; Complete Time: 14:43 [facility] 12/25 13:33 Order name: Magnesium; Complete Time: 14:43 [facility] 12/25 13:33 Order name: NT PRO-BNP; Complete Time: 14:43 [facility] 12/25 13:33 Order name: PT-INR; Complete Time: 14:43 [facility] 12/25 13:33 Order name: Troponin HS; Complete Time: 14:43 [facility] 12/25 13:33 Order name: UA Rfx Eloy Cult if indicated; Complete Time: 14:43 [facility] 12/25 13:33 Order name: Lipase; Complete Time: 14:43 [facility] 12/25 14:41 Order name: Urine Culture [facility] 12/25 13:33 Order name: XRAY Chest (1 view); Complete Time: 14:43 [facility] 12/25 14:58 Order name: Echo with Doppler [facility] 12/25 14:53 Order name: CONS Physician Consult [facility] 12/25 13:33 Order name: Cardiac monitoring; Complete Time: 14:10 [facility] 12/25 13:33 Order name: EKG - Nurse/Tech; Complete Time: 14:10 [facility] 12/25 13:33 Order name: IV Saline Lock; Complete Time: 14:10 [facility] 12/25 13:33 Order name: Labs collected and sent; Complete Time: 14:10 [facility] 12/25 13:33 Order name: O2 Per Protocol; Complete Time: 14:10 [facility] 12/25 13:33 Order name: O2 Sat Monitoring; Complete Time: 14:10 [facility] EC:58 Rate is 79 beats/min. Rhythm is regular. QRS [place] is Normal. CO interval is normal. QRS [place] interval is normal. QT interval is normal. No Q waves. T waves are Inverted in leads I, II, aVL, V5, V6. Clinical impression: NSR w/ Non-specific ST/T Changes. Interpreted by me. Reviewed by me. Administered Medications: 13:57 Drug: NS 0.9% IV 500 ml 500 ml IV at 100 ml/hr once; to be given as a bolus over 30 rg5 minutes Volume: 500 ml; Route: IV; Rate: 100 ml/hr; Site: left hand; 14:27 Follow up: IV Status: Completed infusion; IV Intake: 500ml rg5 13:58 Drug: Aspirin PO Chewable Tablet 324 mg PO once; 81 mg tablets x 4 Route: PO; rg5 14:28 Follow up: Response: No adverse reaction rg5 13:58 Drug: Famotidine IVP 20 mg IVP once; dilute with 10 mL 0.9% NaCl; give over 2 minutes rg5 Route: IVP; Site: left hand; 14:28 Follow up: Response: No adverse reaction rg5 15:00 Drug: Rocephin IV 1 grams IV at per protocol once; Given slow IV push per pharmacy rg5 instructions Route: IV; Rate: per protocol; Site: left hand; 15:29 Follow up: IV Status: Completed infusion; IV Intake: 50ml rg5 Disposition Summary: 12/25/24 14:46 Hospitalization Ordered Notes: Hospitalization Status: Observation [place] Provider: Lupillo Leon cha [facility] [place] Condition: Fair [place] Problem: new [place] Symptoms: have improved [place] Bed/Room Type: Standard [place] Room Assignment: 216(12/25/24 15:03) 6 Diagnosis - Chest pain, unspecified [place] - Dizziness and giddiness [place] - Atelectasis [place] - Pleural effusion, not elsewhere classified [place] - group home (current) use of anticoagulants [place] - Essential (primary) hypertension [place] Forms: - Medication Reconciliation Form [place] - SBAR form [place] - Leadership Thank You Letter [place] Signatures: Dispatcher [employer] EDGeoffrey Valencia MD MD cha [place]atson, Breana bc6 Justo Ayala RN RN rg5 Corrections: (The following items were deleted from the chart) 13:34 13:34 BASIC METABOLIC PANEL+C.LAB.BRZ ordered. EDMS EDMS 13:34 13:34 CBC+H.LAB.BRZ ordered. EDMS EDMS 13:34 13:34 HEPATIC FUNCTION+C.LAB.BRZ ordered. EDMS EDMS 13:34 13:34 MAGNESIUM+C.LAB.BRZ ordered. EDMS EDMS 13:34 13:34 PROBNP+C.LAB.BRZ ordered. EDMS EDMS 13:34 13:34 PROTIME (+INR)+COAG.LAB.BRZ ordered. EDMS EDMS 13:34 13:34 Troponin High Sensitivity+C.LAB.BRZ ordered. EDMS EDMS 13:34 13:34 UA Rfx Eloy Cult if indicated+U.LAB.BRZ ordered. EDMS EDMS 13:34 13:34 LIPASE+C.LAB.BRZ ordered. EDMS EDMS 13:34 13:34 Chest Single View+RAD.RAD.BRZ ordered. EDMS EDMS 15:03 14:46 elmira bc6
[2024-12-25] MEDS ORDERED: CEFTRIAXONE 1000 MG/VIAL ONE (15:05)
[2024-12-25] MEDS ORDERED: NA CHLORIDE 0.9% 50 ML ONE (15:06)
[2024-12-25] MEDS ORDERED: ONDANSETRON 4 MG/2 ML VIAL IV PRN (17:19)
[2024-12-25] MEDS ORDERED: MORPHINE 2 MG/ML SYR IV PRN (17:19)
[2024-12-25] MEDS ORDERED: ACETAMINOPHEN 325 MG TABLET PO PRN (17:19)
[2024-12-25] MEDS: NA CHLORIDE 0.9% 1,000 ML IV SCH (18:08)
[2024-12-25] MEDS: AMLODIPINE 5 MG TAB PO ONE ×2 (18:08→23:07)
[2024-12-25 18:36] VITALS: BMI 32.0
[2024-12-25] MEDS: FAMOTIDINE 20 MG/2 ML VIAL IV SCH (21:51)
[2024-12-25] MEDS: APIXABAN 5 MG TABLET PO SCH (21:52)
[2024-12-26 04:34] LABS: Absolute Lymphocytes (CBC) 1.6 K/uL (0.7-4.9); Hematocrit 36.9 % (39.6-49.0); Hemoglobin 13.1 g/dL (13.6-17.9); MCH 32.1 pg (27.0-35.0); MCHC 35.4 g/dL (32.0-36.0); MCV 90.5 fL (80-100); MPV 7.0 fL (7.6-11.3); Nucleated RBC Absolute Count 0.0 (0-0); Nucleated Red Blood Cells % 0.1 % (0-0); RBC Red Blood Cell Count 4.08 M/uL (4.33-5.43); White Blood Count 7.50 thou/uL (4.3-10.9)
[2024-12-26 04:49] LABS: Anion Gap 7.6 mEq/L (5.0-15.0); BUN Blood Urea Nitrogen 23.0 mg/dL (7-18); Glucose Level 123.0 mg/dL (74-106); Potassium 4.6 mEq/L (3.5-5.1)
[2024-12-26] MEDS: CEFTRIAXONE 1,000 MG in NA CHLORIDE 0.9% 50 ML IVPB SCH (09:20)
[2024-12-26] MEDS: CLOPIDOGREL 75 MG TABLET PO SCH (09:21)
--- NOTE | 2024-12-26 09:36 | HP ---
Date of Admission: 12/25/2024 Chief Complaint: This is an 89-year-old very pleasant male patient, who came into emergency room wit h complaints of chest pain in the center of chest. No radiation. No associated symptoms of nausea, shortness of breath, diaphoresis. Also had some dizziness and generalized weakness along with this c hest pain. He was on the ladder working on a TV antenna outside his house and after that, he started to have these symptoms. He came into ER. After he was evaluated, I was contacted requesting admiss ion to the hospital. When I saw him this evening, his and son were present with him at bedside and he was asymptomatic. Allergies: NO KNOWN ALLERGIES. Medications: Eliquis 5 mg 2 times a day, atorvastatin 20 mg daily, Senokot-S 2 tablets daily, famoti dine 40 mg daily at bedtime, furosemide 40 mg daily, gabapentin 100 mg takes 2 capsules 2 times a day , Memantine 10 mg 2 times a day, metoprolol succinate 50 mg daily, potassium chloride 20 mEq daily, a nd Entresto 24/26 mg 1 tablet 2 times a day. 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 Cardiovascular: As mentioned above. Constitutional: As mentioned above. All other systems reviewed and negative. Past Medical History: Significant for hyperlipidemia, obesity, hypertension, chronic kidney disease, stage IIIB, impaired fasting glucose, leg edema, paroxysmal atrial fibrillation, chronic anticoagula tion, fatigue, gastroesophageal reflux disease, depression, lumbar spondylosis, mild cognitive impair ment, anemia, constipation, and aortic valve stenosis. Past Surgical History: Tonsillectomy, coronary artery bypass surgery in 2017, appendectomy, and surg gordon for bladder cancer. Family History: Father , had atherosclerosis. Mother , had congestive heart failure. Broth er has heart disease and sister also has heart disease. Social History: Prior history of smoking, quit smoking over 30 years ago, and he smoked almost 3 pac ks per day for 30 years. Alcohol use negative. Physical Examination: Vital Signs: Temperature 97.8, pulse 80, respiratory rate 24, blood pressure 194/81, oxygen saturati on 96%. Height 5 feet 6 inches, weight 198 pounds. General: Awake, alert, oriented, not in distress. HEENT: Head atraumatic, normocephalic. Conjunctivae nonerythematous. Sclerae white. Mouth, no thr ush or edema noted. Ears/Nose, no mass, lesion, discharge noted. Neck: Supple. No JVD, lymph nodes, bruit, thyromegaly noted. Lungs: Bilateral good equal air entry. Clear to auscultation. No rhonchi. No rales. Heart: Presence of systolic murmur unchanged. No gallop. Abdomen: Soft, bowel sounds normal. No guarding, rigidity, tenderness, mass, hepatosplenomegaly, dis tention, or bruit noted. Extremities: No leg edema. No calf tenderness. Skin: No rash, ulcer, cellulitis. Lymphatics: No lymph node enlargement in neck, supraclavicular, infraclavicular region. Neuro: No focal neurological deficit. Chest: Unremarkable. External Genitalia: Deferred. Rectal: Deferred. Laboratory Data: WBC 8.9, hemoglobin 13.8, platelets 259. Sodium 142, potassium 4.3, chloride 108, bicarb 29, BUN 25, creatinine 1.35, glucose 153. Liver function tests unremarkable. Troponin 23. P roBNP 312. Lipase 30. Urinalysis, 250 leukocyte esterase, otherwise negative. Chest x-ray shows bi basilar atelectasis and probable trace pleural effusion. Impression: 1. Chest pain. 2. Coronary artery disease. 3. Paroxysmal atrial fibrillation. 4. Hypertension. 5. Hyperlipidemia. 6. Chronic kidney disease stage IIIB. 7. Impaired fasting glucose. 8. Chronic anticoagulation therapy. 9. Gastroesophageal reflux disease. 10. Depression. 11. Mild cognitive impairment. 12. Aortic stenosis. Plan: Admit the patient to hospital for further evaluation and management of this problem. We will go ahead and get serial cardiac enzymes with his chest pain complaint. Initial enzyme was negative. EKG did not show any acute changes. Consult Cardiology. For his coronary artery disease, we will c ontinue his home medications per order. No need for further intervention. For hypertension, we will go ahead monitor blood pressure and adjust medication as it becomes necessary. Continue his home me dications per order. The patient is on Entresto. We will continue that per order. Mild cognitive i mpairment will not require any further intervention. Gastroesophageal reflux disease problem is stab le. We will continue his medication. No need for further intervention. Total time spent 60 minutes including review of last office visit record from 12/02/2024, review of r ecent hospital admission from last weekend including discharge summary from 12/22/2024, communication with emergency room physician, review of emergency room visit record, and performing today's evaluat ion and management. YOBANY/MODL Voice ID: [id number]
--- NOTE | 2024-12-26 13:13 | P.CNS ---
Date of Consult: 12/26/24 Chief Complaint: chest pain, dizzy spells History of Present Illness: Patient with PMH of moderate to severe , AF s/p ablation, CAD s/p CABG, presented with chest pain, yesterday lasted for one hour, also report dizziness, SOB, denies syncope. Allergies No Known Allergies Allergy (Verified 03/25/24 09:20) Home medications list reviewed: Yes Home Medications: Atorvastatin Calcium [Lipitor] 20 mg PO DAILY 06/06/11 Apixaban [Eliquis] 1 tab PO BID 03/25/24 Memantine HCl 10 mg PO BID 03/25/24 Potassium Chloride 1 tab PO DAILY 03/25/24 Famotidine 40 mg PO BEDTIME 12/20/24 Furosemide 40 mg PO DAILY 12/20/24 Gabapentin 200 mg PO BID 12/20/24 Metoprolol Succinate 50 mg PO DAILY 12/25/24 - Past Medical/Surgical History Diabetic: No -: HTN -: AFib -: High Cholesterol -: Bladder Cancer -: Appendectomy -: Hernia Repair -: Artificial Bladder - Family History Mother Medical History: Heart disease Father Medical History: Heart disease Brother Medical History: Heart disease Notes: Brother has had bypass surgery Sister Medical History: Heart disease Notes: Sister has pacemaker/defibrillator - Social History Smoking Status: Unknown if ever smoked Alcohol use: No CD- Drugs: No Caffeine use: Yes Place of Residence: Home Review of Systems 10-point ROS is otherwise unremarkable Physical Examination Temp Pulse Resp BP Pulse Ox 98.0 F 77 16 151/70 H 97 12/26/24 08:00 12/26/24 08:00 12/26/24 08:00 12/26/24 08:00 12/26/24 08:00 General: Alert, In no apparent distress HEENT: Atraumatic, PERRLA, Mucous membr. moist/pink, EOMI, Sclerae nonicteric Neck: Supple, 2+ carotid pulse no bruit, No LAD, Without JVD or thyroid abnormality Respiratory: Clear to auscultation bilaterally, Normal air movement Cardiovascular: Regular rate/rhythm, Normal S1 S2 Gastrointestinal: Normal bowel sounds, No tenderness Musculoskeletal: No tenderness Integumentary: No rashes Neurological: Normal gait, Normal speech, Normal tone, Normal affect Lymphatics: No axilla or inguinal lymphadenopathy Laboratory Data (last 24 hrs) 12/25/24 12/25/24 12/25/24 13:48 13:48 13:48 WBC 8.90 Hgb 13.8 Hct 40.8 Plt Count 259 PT 20.7 H INR 1.87 Sodium 142 Potassium 4.3 BUN 25 H Creatinine 1.35 H Glucose 153 H Magnesium 2.4 Total Bilirubin 0.6 AST 19 ALT 38 Alkaline Phosphatase 47 Lipase 30 - Problems (1) Aortic stenosis Current Visit: Yes Status: Acute Plan: patient is becoming more symptomatic, will repeat echo as outpatient to evaluate further, most likely he will need NATASHA. (2) CAD (coronary artery disease) of artery bypass graft Current Visit: Yes Status: Acute Plan: patient troponin negative x2, he had coronary angiogram in 2023 that shown patent ROTH-LAD, SVG-OM and mild disease in SVG-RPDA, plan is to get cardiac PET as outpatient. (3) Atrial fibrillation Current Visit: Yes Status: Acute Plan: patient is currently in sinus rhythm. continue Toprol XL 50 mg daily continue Elqiuis 5 mg po BID (4) Second degree heart block Current Visit: Yes Status: Acute Plan: it happened in the middle of the night, tele reviewed and no event during the day. will get him 7 days event monitor and will decide about need for PM.
[2024-12-26 13:36] VITALS: BP 129/63; TEMP 98.1
[2024-12-26 14:03] VITALS: O2SAT 94
== END 2024-12-26 16:00 | disposition home or self-care (01) ==
LOC: ER 13:08 → ERHOLD 14:49 → 2ND 15:15
PROVIDERS: ADMIT Internal Medicine; ATTEND Internal Medicine
DX: R07.9 Chest pain, unspecified (principal); I25.10 Atherosclerotic heart disease of native coronary artery without angina pectoris; I48.11 Longstanding persistent atrial fibrillation; I35.0 Nonrheumatic aortic (valve) stenosis; R42 Dizziness and giddiness; R53.1 Weakness; E78.5 Hyperlipidemia, unspecified; E66.9 Obesity, unspecified; I10 Essential (primary) hypertension; R06.02 Shortness of breath; N18.32 Chronic kidney disease, stage 3b; R73.01 Impaired fasting glucose; R60.0 Localized edema; K21.9 Gastro-esophageal reflux disease without esophagitis; F32.A Depression, unspecified; D64.9 Anemia, unspecified; K59.00 Constipation, unspecified; M47.896 Other spondylosis, lumbar region; G31.84 Mild cognitive impairment of uncertain or unknown etiology; Z79.01 Long term (current) use of anticoagulants
CPT/HCPCS: 96365; 93005 ×2; 87088; 85025 ×2; 81001; 87086; 80048 ×2; 36415; 83735; 85610; 80076; 84484 ×2; 83690; 83880; 71045; 96375; 99285; J7040; J7030 ×2; J0696 ×2; G0378 ×3